=== PATIENT | male | born 1980 | race Caucasian/White ===

== ENCOUNTER 2020-10-17 14:49 | Outpatient (CLI) | payer BC, SELFPAY ==
--- NOTE | ~2020-10-17 | XR_ITS ---
XR hip RT 2V w AP pelvis 10/17/2020 15:39 Indication: Right hip pain Procedure: 4 views right hip including AP pelvis Comparison: 10/17/2020 Findings: Pelvic rings are intact. Sacral foramen are symmetric. No fracture, subluxation or dislocat ion. No significant soft tissue abnormality. No significant joint space narrowing. Impression: 1: No significant bone or joint abnormality. Reviewed, dictated and finalized at location A. Impression: 1: No significant bone or joint abnormality.
--- NOTE | ~2020-10-17 | XR_ITS ---
XR sacroiliac joints min 3V 10/17/2020 15:39 Indication: Spondylosis. Low back pain. Procedure: 3 views of the sacroiliac joints. Comparison: No prior studies for comparison. Findings: Sacroiliac joints are symmetric without significant degenerative change, erosive change or ankylosis. Sacral foramen are symmetric. Surrounding osseous structures are unremarkable. Impression: 1: No significant abnormality of the sacroiliac joints. Reviewed, dictated and finalized at location A. Impression: 1: No significant abnormality of the sacroiliac joints.
== END 2020-10-17 14:50 | disposition home or self-care (01) ==
LOC: ANHIMG 14:55
PROVIDERS: PCP Family Medicine; Visit Provider Family Medicine
DX: M47.818 Spondylosis without myelopathy or radiculopathy, sacral and sacrococcygeal region (principal)
CPT/HCPCS: 72202; 73502

== ENCOUNTER 2020-10-22 23:35 | Inpatient (IN) | payer BC, SELFPAY ==
--- NOTE | ~2020-10-22 | CT_ITS ---
EXAMINATION: CT abdomen pelvis w con EXAM DATE: 10/23/2020 01:12 INDICATION: right gluteal pain . TECHNIQUE: Spiral CT of the abdomen and pelvis was performed following intravenous injection of 100 m L Omnipaque 350. Axial, coronal and sagittal images of the abdomen and pelvis were reviewed. The do se-length product (DLP) for this examination was 1914.67 mGy-cm. The exposure was tailored according to patient size (auto mA exposure control), and iterative reconstruction (ASIR) was used as addition al dose reduction technique. There is no prior study for comparison. FINDINGS: There is large phlegmon and abscess in the posterior aspect of the perineum, inner buttock folds. This appears to be multiloculated. Region measures approximately 12 x 6 cm, does not extend in to the pelvis. Ill-defined indeterminate region in the right liver lobe measuring 3 cm; follow-up ab domen MRI without and with contrast recommended. Gallbladder is unremarkable. No biliary obstructio n. Some renal lesions which are too small to characterize by CT could also be evaluated by MR. The prostate is unremarkable. The bladder is unremarkable. Some reactive pelvic lymphadenopathy. The r ight testicle appears to be in the lower aspect of the inguinal canal. Patient may have had appendectomy. The stomach and small bowel are unremarkable. There is expected amount of colonic stool. No free intraperitoneal gas. The heart is normal in size. There are no pericardial or pleural effusions. The lung bases are unremarkable. There are no osteoblastic or ost eolytic lesions identified. IMPRESSION: 1. Large multiloculated abscess posterior to the anus along the inner gluteal folds bilaterally. 2. Some reactive pelvic lymphadenopathy. 3. Left testicle in the lower aspect of inguinal canal. 4. Indeterminate 3 cm right liver lobe lesion; follow-up abdomen MR without and with contrast. 5. Renal lesions probably cysts but too small to characterize. Reviewed, dictated and finalized at location G. IMPRESSION: 1. Large multiloculated abscess posterior to the anus along the inner gluteal folds bilaterally. 2. Some reactive pelvic lymphadenopathy. 3. Left testicle in the lower aspect of inguinal canal. 4. Indeterminate 3 cm right liver lobe lesion; follow-up abdomen MR without an d with contrast. 5. Renal lesions probably cysts but too small to characterize.
--- NOTE | ~2020-10-22 | XR_ITS ---
EXAMINATION: XR chest 2V DATE: 10/23/2020 14:35 INDICATION: Dyspnea on exertion TECHNIQUE: frontal and lateral views of the chest were obtained. COMPARISON: CT abdomen and pelvis dated 11/22/2020 FINDINGS: Thin linear bands of discoid atelectasis at the bilateral mid lung zones. No other airspace opacities , pulmonary edema, pleural effusion or pneumothorax. The cardiomediastinal silhouette is normal. IMPRESSION: 1. Mild discoid atelectasis in the bilateral mid lung zones. No other acute cardiopulmonary disease. Reviewed, dictated and finalized at location A. IMPRESSION: 1. Mild discoid atelectasis in the bilateral mid lung zones. No other acute car diopulmonary disease.
--- NOTE | ~2020-10-22 | MR_ITS ---
EXAMINATION: MR abdomen wo/w con INDICATION: Indeterminate liver lesion TECHNIQUE: Coronal SSFSE ARC, WATER:coronal LAVA-FLEX, Coronal 2D FIESTA FatSat, Axial SSFSE BH ARC, Axial 3D DualEcho BH, Axial SSFSE-IR, Axial DWI b=500, Axial 2D FIESTA FatSat, pre and dynamic postco ntrast Axial LAVA ARC, postcontrast Coronal In and Opposed phase LAVA FLEX COMPARISON: CT, 10/23/2020 CONTRAST: Multihance, 20 cc FINDINGS: Respiratory motion artifact limits the examination. There is a 4.2 x 2.9 cm T1 hypointense, T2 hyperintense mass in the right hepatic lobe which demonstrates interrupted peripheral nodular enh ancement with gradual filling on progressively delayed postcontrast images, consistent with a hemangi horacio. No additional liver lesion is identified. Polyps cysts of the kidneys measure up to 2.3 cm on th e right. There are no pathologically enlarged abdominal lymph nodes. No dilated loops of bowel are ev ident. There is loss of hepatic parenchymal signal on opposed phase imaging, consistent with hepatic steatosis. IMPRESSION: 1. Liver lesion most likely hemangioma, examination limited by respiratory motion. Reviewed, dictated and finalized at location A. IMPRESSION: 1. Liver lesion most likely hemangioma, examination limited by respiratory jennie on.
--- NOTE | ~2020-10-22 | CT_ITS ---
EXAMINATION: CTA chest PE protocol DATE: 10/26/2020 12:38 INDICATION: Dyspnea on exertion TECHNIQUE: Computed tomography angiography (CTA) of the chest was performed with 100 mL Omnipaque-350 intravenous contrast timed to evaluate the pulmonary arteries. Coronal maximum intensity projection 3D-reconstructions were created by the technologist. The dose-length product (DLP) was 1015.84 mGy-cm . Automated exposure control and iterative reconstruction technique were employed. COMPARISON: None. FINDINGS: The pulmonary arteries are well-opacified. No pulmonary embolism is identified. There is mi ld atelectasis. The lungs are free of focal airspace opacities. There is no pleural effusion or pneum othorax. No pathologically enlarged thoracic lymph nodes are identified. The heart size is normal. Th ere is mild thoracic spondylosis. IMPRESSION: 1. No pulmonary embolism or acute cardiopulmonary abnormality. Reviewed, dictated and finalized at location A.
[2020-10-22 23:37] VITALS: BP 120/51; PULSE 88; RESP 18; TEMP 36.6; O2SAT 98
[2020-10-23] VITALS (19 sets, daily range): BP systolic 88–127; BP diastolic 49–72; PULSE 68–124; RESP 12–23; TEMP 36.5–39.2; O2SAT 87–100; BMI 51.6
[2020-10-23] MEDS: MORPHINE SULFATE (*CRX) 4 MG/ML INJ IV PUSH ×2 (00:24→06:04)
[2020-10-23] MEDS: SODIUM CHLORIDE 0.9% IV 1,000 ML 999 ML IV CONT (00:24)
[2020-10-23 00:40] LABS: Basophils Absolute Auto 0.1 K/mm3 (0.0-0.1); Basophils Percent Auto 0.5 % (0.2-1.2); Eosinophils Percent Auto 0.2 % (0-4.4); Hematocrit 35.6 % (42.0-52.0); Hemoglobin 11.7 g/dL (14.0-18.0); Immature Granulocyte Absolute 0.16 K/mm3 (0.00-0.031); Immature Granulocyte Percent A 1.3 % (0-0.5); Lymphocytes Absolute Auto 1.21 K/mm3 (0.9-3.2); Lymphocytes Percent Auto 9.5 % (18.3-44.2); Mean Corpuscular HGB Conc 32.9 g/dl (32-36); Mean Corpuscular Hemoglobin 28.4 pg (26-34); Mean Corpuscular Volume 86.4 fl (80-100); Mean Platelet Volume 10.5 fl (7.4-10.4); Monocytes Absolute Auto 1.2 K/mm3 (0.1-0.6); Monocytes Percent Auto 9.5 % (2.6-8.5); Platelet Count Result 220 k/mm3 (150-375); Red Blood Count 4.12 M/mm3 (4.6-6.20); Red Cell Distribution Width 11.9 % (11.5-14.5); White Blood Count 12.7 K/mm3 (4.5-10.0)
[2020-10-23 00:50] LABS: Alanine Aminotransferase 43 U/L (4-50); Albumin Level 3.4 g/dL (3.5-5.1); Alkaline Phosphatase 115 U/L (38-126); Anion Gap 12 mmol/L (8-16); Aspartate Amino Transferase 34 U/L (17-59); Bilirubin,Total 0.9 mg/dL (0.2-1.3); Blood Urea Nitrogen 14 mg/dL (9-20); Calcium 8.9 mg/dL (8.4-10.2); Carbon Dioxide 24 mmol/L (22-30); Chloride 98 mmol/L (98-107); Estimated CRCL calculation 117 ml/min; Estimated Glomerular Filt Rate > 60; Glucose 299 mg/dL (65-110); Potassium 4.1 mmol/L (3.4-5.0); Sodium 134 mmol/L (137-145)
[2020-10-23 00:51] LABS: Lactic Acid Reflex 2.1 mmol/L (0.7-2.1)
[2020-10-23 00:53] LABS: Partial Thromboplastin Time 28.6 SECONDS (22.3-36.8)
[2020-10-23 00:59] LABS: INR 1.1; Prothrombin Time 13.8 Seconds (11.1-14.7)
--- NOTE | 2020-10-23 01:54 | ED.GENADULT ---
HPI - General Adult General Chief complaint: Unspecified Stated complaint: rectal pain Time Seen by Provider: 10/22/20 23:54 History of Present Illness HPI narrative: Patient is a 40-year-old gentleman who presents the emergency department with chief complaint of pain in the buttocks. Patient states that he saw his primary care physician this week and was told that he had pain from degenerative disc disease. Patient was started on oral pain medications and muscle relaxers and referred to physical therapy patient reported that he has noticed these been running fevers and noticed that his left gluteal area is firm and he has a lot of tenderness in his anal area. Patient denies vomiting denies diarrhea reports that the pain is worsened with movement and improved with rest. Related Data Allergies Allergy/AdvReac Type Severity Reaction Status Date / Time No Known Allergies Allergy Verified 10/23/20 00:24 Review of Systems Review of Systems: A 10 system review of systems was completed on the patient and is negative except for what is stated in the HPI. Nursing and ancillary documentation was reviewed. [facility] Past Medical History Medical History Migraine with aura and with status migrainosus, not intractable Family History Family History Mother Family history of migraine headaches Hypertension Social History Social History Alcohol intake: never Exam Narrative: GENERAL: Well-appearing, well-nourished, and in no acute distress. HEAD: Normocephalic, atraumatic. EYES: PERRLA and EOMI. ENT: Nares clear, no rhinorrhea or epistaxis. Mucous membranes moist. NECK: Supple. CHEST: Clear to auscultation. No respiratory distress. HEART: Regular rate and rhythm. No murmur heard. Normal peripheral pulses. ABDOMEN: Soft, nontender, nondistended, normal active bowel sounds. : There are several congested appearing hemorrhoids the rectal area is erythematous tender to palpation the left gluteal area is firm and indurated EXTREMITIES: Normal range of motion. No edema. SKIN: Warm, dry, no rash. NEURO: No focal deficits. Alert and oriented x3. PSYCH: Normal mood and affect. Course Vital Signs Vital signs: Vital Signs Temperature 36.6 C 10/22/20 23:37 Pulse Rate 88 10/22/20 23:37 Respiratory Rate 18 10/22/20 23:37 Blood Pressure 120/51 L 10/22/20 23:37 Pulse Oximetry 98 10/22/20 23:37 Temperature 36.6 C 10/22/20 23:37 Pulse Rate 69 10/23/20 02:54 Respiratory Rate 18 10/23/20 02:54 Blood Pressure 122/65 10/23/20 02:54 Pulse Oximetry 100 10/23/20 02:54 Medical Decision Making Vital Signs Vital Signs: Vital Signs Temperature 36.6 C 10/22/20 23:37 Pulse Rate 88 10/22/20 23:37 Respiratory Rate 18 10/22/20 23:37 Blood Pressure 120/51 L 10/22/20 23:37 Pulse Oximetry 98 10/22/20 23:37 Temperature 36.6 C 10/22/20 23:37 Pulse Rate 69 10/23/20 02:54 Respiratory Rate 18 10/23/20 02:54 Blood Pressure 122/65 10/23/20 02:54 Pulse Oximetry 100 10/23/20 02:54 Lab Data Result diagrams: 10/23/20 00:21 10/23/20 00:21 Labs: Lab Results 10/23/20 10/23/20 10/23/20 Range/Units 00:21 00:21 00:21 WBC 12.7 H (4.5-10.0) K/mm3 RBC 4.12 L (4.6-6.20) M/mm3 Hgb 11.7 L (14.0-18.0) g/dL Hct 35.6 L (42.0-52.0) % MCV 86.4 (80-100) fl MCH 28.4 (26-34) pg MCHC 32.9 (32-36) g/dl RDW 11.9 (11.5-14.5) % Plt Count 220 (150-375) k/mm3 MPV 10.5 H (7.4-10.4) fl Immature Gran % (Auto) 1.3 H (0-0.5) % Neut % (Auto) 79.0 H (45.5-73.1) % Lymph % (Auto) 9.5 L (18.3-44.2) % [place] % (Auto) 9.5 H (2.6-8.5) % Eos % (Auto) 0.2 (0-4.4) % Baso % (Auto) 0.5 (0.2-1.2) % Lymph # (Auto) 1.21 (0.9-
[2020-10-23 02:56] LABS: Add Urine Microscopic? YES; Appearance Urine Clear (Clear); Bilirubin Urine Negative (Negative); Blood Urine Negative (Negative); Color Urine Yellow (Yellow); Glucose Urine UA 3+ mg/dL (Negative); Ketones Urine Trace mg/dL (Negative); Leukocyte Esterase Ur Negative LEU/UL (Negative); Mucus Urine Rare /lpf; Nitrate Urine Negative (Negative); Protein Urine 1+ mg/dL (Negative); Squamous Epithelial Cell Urine Occasional /hpf (Few)
[2020-10-23 02:57] LABS: Specific Grav Ur 1.052 (1.001-1.035)
[2020-10-23 03:37] LABS: Reflex Lactic Acid Yes or No Add Lactic
--- NOTE | 2020-10-23 04:51 | ADMGEN ---
This patient, Ed Calvo, was admitted to 3 [facility] Surg Room 304-01 04:40. Patient/family oriented to hospital policies and general routines including ID bracelet, bed and alarms, visiting hours, pain management, procedures, bathroom and other care routines, personal items, smoking policy, room service/diet, and visiting hours. Information on how to activate the Rapid Response Team has been discussed. Patient/Family are encouraged to report perceived risks to care and to ask questions if they do not understand what they are told or what they should do.
[2020-10-23 05:42] LABS: Lactic Acid 1.4 mmol/L (0.7-2.1)
[2020-10-23] MEDS: SODIUM CHLORIDE 0.9% IV 1,000 ML 125 ML IV CONT (06:00)
--- NOTE | 2020-10-23 08:39 | PM.IMHP ---
H&P: HPI History of Present Illness Date/Time: 10/23/20 08:39 Chief Complaint: buttock pain Narrative: Pt is a 40-year-old male with a history of diabetes, hypertension, hyperlipidemia, OSIRIS, and migraines who presented emergency room for worsening buttocks pain. The patient states the pain started 2-3 weeks ago and feels like a sharp and stabbing pain in his right buttocks. The pain does not radiate anywhere else to the body. He states right now his pain is a 5/10 but at max it was 9/10. He states it was painful and he went to the doctor who thought it could be low back strain and was sent home with NSAIDs. In the last week, he noticed it being more swollen and firm but no drainage. He says the pain is mostly in his right gluteus nic and not his rectum. He started having fevers last week at 101.8 T-max. He has noticed some diarrhea but no blood in his stool. He does have a decreased appetite but no nausea vomiting. He further denies chills, hematuria, chest pain, headaches or abdominal pain. He does have some dyspnea on exertion which started in the last few weeks and has no history of heart or lung disease but does have a history of sleep apnea. He has no further symptoms of COVID such as cough, congestion, loss of smell or taste, sore throat and has been vaccinated by [employer] in April. No history of liver disease. As for his diabetes, he says he is unsure of his last A1c and does not check at home because no one has ever showed him how . Review of Systems Review of Systems: All systems reviewed & are unremarkable except as noted in HPI and below PMFSH Past Medical History Medical History (Updated 10/23/20 @ 08:59 by Aym Barnes PA-C) Essential (primary) hypertension Migraine with aura and with status migrainosus, not intractable Mixed hyperlipidemia Obstructive sleep apnea (adult) (pediatric) Type 2 diabetes mellitus without complications Surgical History Surgical History (Updated 10/23/20 @ 08:56 by Amy Barnes PA-C) Previous back surgery unknown type fixing holes in his back due to infection. No hardware per pt Family History Family History Mother Family history of migraine headaches Hypertension Social History Social History (Updated 10/23/20 @ 08:57 by Amy Barnes PA-C) Social History: Patient does not drink, smoke, or do drugs. He would like to be a full code. His surrogate decision maker is his mom, Sena. He currently works at a desk job. Smoking status: Never smoker Alcohol intake: never Substance use: never Spiritual care concerns: No Meds Home Medications and Allergies Home Medications Medication Instructions Recorded Confirmed Type fremanezumab-vfrm 225 mg/1.5 mL 225 mg SUB-Q MONTHLY #4.5 ml 09/02/19 10/23/20 Rx subcutaneous auto-injector metformin 500 mg tablet,extended 500 mg PO BID #180 tablet 10/31/19 10/23/20 Rx release 24 hr lisinopril 10 mg tablet 10 mg PO DAILY #90 tablet 02/13/20 10/23/20 Rx ergocalciferol (vitamin D2) 1,250 See Rx Instructions .ROUTE 03/09/20 10/23/20 Rx mcg (50,000 unit) capsule .COMPLEX #12 capsule cyclobenzaprine 10 mg tablet 10 mg PO TID PRN #30 tablet 10/16/20 10/23/20 Rx lovastatin 10 mg PO DAILY 10/23/20 10/23/20 History sumatriptan succinate See Rx Instructions .ROUTE 10/23/20 10/23/20 History .COMPLEX PRN MDD 2 Allergies Allergy/AdvReac Type Severity Reaction Status Date / Time No Known Allergies Allergy Verified 10/23/20 05:12 Vital Signs Vital Signs - 24 hr 10/22/20 23:37 10/23/20 02:54 10/23/20 05:07 Temperature 97.9 F 97.7 F Pulse Rate 88 69 124 H Respiratory Rate 18 18 20 Blood Pressure 120/51 L 122/65 106/53 L Pulse Oximetry 98 100 93 10/23/20 06:00 Temperature 97.9 F Pulse Rate 68 Respiratory Rate 18 Blood Pressure 122/56 L Pulse Oximetry 99 Exam Narrative: General:Well developed well nourish
[2020-10-23 08:41] LABS: Hemoglobin A1C 10.4 % (<5.7)
--- NOTE | 2020-10-23 08:58 | ECG_ITS ---
Measurements Intervals [place] Rate: 113 P: 53 IA: 154 QRS: -47 QRSD: 107 T: 33 QT: 331 QTc: 455 Interpretive Statements SINUS TACHYCARDIA INCOMPLETE RIGHT BUNDLE BRANCH BLOCK LEFT ANTERIOR FASCICULAR BLOCK BASELINE ARTIFACT- V1-V2 ABNORMAL ECG Electronically Signed On 10-23-2020 9:47:06 CDT by Delon Goetz D.O.
--- NOTE | 2020-10-23 09:49 | WPDANESEPPF ---
Anes - Initial Pre Proc Eval Procedure: Operation Date: 10/23/20 10:00 Proposed Procedures p Incision and Drainage of Justina-Rectal Abscess - Roel Wiley MD Date/Time: 10/23/20 09:49 Surgeon: Amy Barnes PA-C Pre Op Diagnosis: Perianal Abscess, Hyperglycemia Patient Data Age: 40 Gender: M Height: 1.68 m Weight: 145.1 kg Last Vital Signs Temp 36.6 C 10/23/20 06:00 Pulse 68 10/23/20 06:00 Resp 18 10/23/20 06:00 BP 122/56 L 10/23/20 06:00 Pulse Ox 99 10/23/20 06:00 Allergies Allergy/AdvReac Type Severity Reaction Status Date / Time No Known Allergies Allergy Verified 10/23/20 05:12 Home Medications Medication Instructions Recorded Confirmed Type fremanezumab-vfrm 225 mg/1.5 mL 225 mg SUB-Q MONTHLY #4.5 ml 09/02/19 10/23/20 Rx subcutaneous auto-injector metformin 500 mg tablet,extended 500 mg PO BID #180 tablet 10/31/19 10/23/20 Rx release 24 hr lisinopril 10 mg tablet 10 mg PO DAILY #90 tablet 02/13/20 10/23/20 Rx ergocalciferol (vitamin D2) 1,250 See Rx Instructions .ROUTE 03/09/20 10/23/20 Rx mcg (50,000 unit) capsule .COMPLEX #12 capsule cyclobenzaprine 10 mg tablet 10 mg PO TID PRN #30 tablet 10/16/20 10/23/20 Rx lovastatin 10 mg PO DAILY 10/23/20 10/23/20 History sumatriptan succinate See Rx Instructions .ROUTE 10/23/20 10/23/20 History .COMPLEX PRN MDD 2 Laboratory Tests 10/23/20 10/23/20 10/23/20 00:21 00:21 00:21 WBC 12.7 K/mm3 H K/mm3 (4.5-10.0) RBC 4.12 M/mm3 L M/mm3 (4.6-6.20) Hgb 11.7 g/dL L g/dL (14.0-18.0) Hct 35.6 % L % (42.0-52.0) MCV 86.4 fl fl (80-100) MCH 28.4 pg pg (26-34) MCHC 32.9 g/dl g/dl (32-36) RDW 11.9 % % (11.5-14.5) Plt Count 220 k/mm3 k/mm3 (150-375) MPV 10.5 fl H fl (7.4-10.4) Immature Gran % (Auto) 1.3 % H % (0-0.5) Neut % (Auto) 79.0 % H % (45.5-73.1) Lymph % (Auto) 9.5 % L % (18.3-44.2) [place] % (Auto) 9.5 % H % (2.6-8.5) Eos % (Auto) 0.2 % % (0-4.4) Baso % (Auto) 0.5 % % (0.2-1.2) Lymph # (Auto) 1.21 K/mm3 K/mm3 (0.9-3.2) [place] # (Auto) 1.2 K/mm3 H K/mm3 (0.1-0.6) Eos # (Auto) 0.0 K/mm3 K/mm3 (0-0.3) Baso # (Auto) 0.1 K/mm3 K/mm3 (0.0-0.1) Abs Immat Gran (auto) 0.16 K/mm3 H K/mm3 (0.00-0.031) Absolute Neuts (auto) 10.0 K/mm3 H K/mm3 (1.3-6.7) Absolute Nucleated RBC 0.0 K/mm3 K/mm3 (0.0-0.012) Nucleated RBC % 0.0 % % (0.0-0.2) PT INR APTT Sodium 134 mmol/L L mmol/L (137-145) Potassium 4.1 mmol/L mmol/L (3.4-5.0) Chloride 98 mmol/L mmol/L (98-107) Carbon Dioxide 24 mmol/L mmol/L (22-30) Anion Gap 12 mmol/L mmol/L (8-16) BUN 14 mg/dL mg/dL (9-20) Creatinine 1.00 mg/dL mg/dL (0.7-1.3) Estim Creat Clear Calc 117 ml/min ml/min Estimated GFR > 60 (59 - ) Glucose 299 mg/dL H mg/dL (65-110) Hemoglobin A1c Lactic Acid 2.1 mmol/L mmol/L (0.7-2.1) Calcium 8.9 mg/dL mg/dL (8.4-10.2) Total Bilirubin 0.9 mg/dL mg/dL (0.2-1.3) AST 34 U/L U/L (17-59) ALT 43 U/L U/L (4-50) Alkaline Phosphatase 115 U/L U/L (38-126) Total Protein 6.0 g/dL L g/dL (6.3-8.2) Albumin 3.4 g/dL L g/dL (3.5-5.1) Urine Color Urine Appearance Urine pH Ur Specific [place] Urine Protein Urine Glucose (UA) Urine Ketones Ur Blood (Man) Urine Nitrate Urine Bilirubin Urine Urobilinogen Leukocyte Esterase Rfl Urine RBC Urine WBC Ur Squamous Epith Cells Ur
[2020-10-23] MEDS: LACTATED RINGERS 1,000 ML 30 ML IV CONT ×2 (10:01→12:09)
--- NOTE | 2020-10-23 10:11 | SUR.PREOP ---
1011- Call to Dr. Ralph and made aware patient's BG 256. No orders received at this time.
[2020-10-23 10:12] LABS: Glucose Point of Care 256 mg/dl (65-105)
--- NOTE | 2020-10-23 10:17 | WPDHPUPDATE1 ---
History and Physical Update Update Date/Time: 10/23/20 10:17 History and Physical has been reviewed, including an updated exam of the patient. There are NO changes in the patient's condition. Risks, benefits, and alternatives have been discussed and questions answered. Patient agrees to proceed with procedure.
--- NOTE | 2020-10-23 10:29 | PM.CNGS ---
Assessment and Plan Assessment and plan (1) Perirectal abscess: Code(s): K61.1 - Rectal abscess Status: Acute Assessment and Plan: Large abscess left buttocks and midline sacral area. Could be perirectal or could be recurrent pilonidal disease. Patient has active significant infection and is an uncontrolled diabetic. Will proceed with incision and drainage under general anesthesia in the operating room. No evidence of developing a necrotizing soft tissue infection at this point although this certainly couldrogress to that. Plan to proceed with prompt incision and drainage. Advised patient of the abscess and that further procedures may be necessary after the abscess has been drained. All questions were answered. He agrees to proceed. (2) Morbid (severe) obesity due to excess calories: Code(s): E66.01 - Morbid (severe) obesity due to excess calories Status: Acute (3) Acute hyperglycemia: Code(s): R73.9 - Hyperglycemia, unspecified Status: Acute (4) Type 2 diabetes mellitus without complications: Code(s): E11.9 - Type 2 diabetes mellitus without complications Status: Acute (5) Obstructive sleep apnea (adult) (pediatric): Code(s): G47.33 - Obstructive sleep apnea (adult) (pediatric) Status: Acute History of Present Illness Consult details Consult date: 10/23/20 Reason for consult: other (Perirectal, sacral abscess) Requesting physician: Fredi Hill MD Narrative: Patient is a 40-year-old morbidly obese man who is a poorly controlled diabetic. He reports he has had pain in the buttocks and sacral area for 3 weeks. The etiology of this has not been evident. He recently saw is a primary care physician and it seemed this was due to degenerative changes in his back. However, the patient began running fever and having harness with more pain in the left buttocks. He came to the emergency room last night. He was noted to have left buttocks tenderness and on CT scan of very large abscess in the buttocks and presacral area. He was admitted and started on IV antibiotics. The patient has a large scar in the presacral area which is from excision of a pilonidal cyst in 2018. He is taken to surgery now for incision and drainage of a large perirectal, sacral abscess likely either a perirectal abscess or a recurrence of his pilonidal cyst disease. He is diabetic and hemoglobin A1c is already returned and is 10.4. White blood cell count was 97135. Blood sugar in the emergency room was 299. Review of Systems Review of Systems: All systems reviewed & are unremarkable except as noted in HPI and below Constitutional: Constitutional: Reports chills, Reports fever(s) and Reports night sweats PMFSH Past Medical History Medical History (Updated 10/23/20 @ 10:42 by Roel Wiley MD) Essential (primary) hypertension Migraine with aura and with status migrainosus, not intractable Mixed hyperlipidemia Obstructive sleep apnea (adult) (pediatric) Type 2 diabetes mellitus without complications Surgical History Surgical History (Updated 10/23/20 @ 10:42 by Roel Wiley MD) History of surgical removal of pilonidal cyst 2018 Family History Family History Mother Family history of migraine headaches Hypertension Social History Social History (Updated 10/23/20 @ 08:57 by Amy Barnes PA-C) Social History: Patient does not drink, smoke, or do drugs. He would like to be a full code. His surrogate decision maker is his mom, Sena. He currently works at a desk job. Smoking status: Never smoker Alcohol intake: never Substance use: never Spiritual care concerns: No Meds Home Medications and Allergies Home Medications Medication Instructions Recorded Confirmed Type fremanezumab-vfrm 225 mg/1.5 mL 225 mg SUB-Q MONTHLY #4.5 ml 09/02/19 10/23/20 Rx subcutaneous auto-injec
--- NOTE | 2020-10-23 11:47 | W.PM.PROC2 ---
Procedure Note - Detailed Date of Procedure 10/23/20 Pre-op Diagnosis Large perirectal abscess Post-op Diagnosis same Procedure Performed Incision and drainage of complicated perirectal abscess Surgeon Roel Wiley MD Case Work Aide Luisana Izaguirre [facility] Anesthesia general Indications Patient has a 2 to three-week history of sacral and perianal pain. He started running fevers and noted increasing pain in the area of the left buttocks. The buttocks also became very firm. He came to the emergency room where he was noted to be very tender particularly in the left buttocks. CT scan showed an extensive izabela rectal or sacral abscess. The patient is taken to surgery now for incision and drainage. Findings There was an extensive very large left-sided perirectal abscess that extended around the posterior midline and also involved the right posterior and perirectal area. Cultures of this were obtained. Repeated review of the dentate line and the distal rectum was carried out and no fistula or purulent drainage in the rectum was noted. 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 There were multiple loculations in the abscess which were broken down manually. Description of Procedure The patient was taken to surgery and induced into general anesthesia. He was then placed in prone polly-knife position. Both buttocks were shaved and then taped apart. Prep and drape was carried out. The area of the abscess was not really visible. Puncture aspiration with an 18 gauge needle and syringe was carried out. No purulent fluid returned initially but finally in the right posterior quadrant, purulent fluid did return. A couple of cc of this were drawn and sent for culture and sensitivity as well as Gram stain. Incision was made over this area and sharp dissection down to a large abscess was carried out. The abscess probably had 3-400 cc of purulent fluid within it. Suction was used and eventually the abscess was drained enough that purulent fluid was no longer emanating. Placing a finger in the abscess, I probed to break down loculations and search for other abscesses. The abscess went down along the right side just past the level of the anus. It crossed over the posterior midline and a counter incision was made in the left posterior midline to assist with adequate drainage. Continued digital probing as well as placing pressure over the left and right buttocks was carried out. Hill-Junior anoscope were placed in the rectum and an internal opening was sought. None was seen. Eventually with some palpation of the mid left buttocks, purulent fluid was noted to express from the openings already made. Digital probing in this area unlocked another large abscess in the left perirectal buttocks. This was drained and 2 additional counter incisions were made. One was in the mid left buttocks and another was more anterior. The left-sided abscess extended to the anterior quadrant of the left buttocks. These loculations were broken down and all purulent material was suctioned away. Then all of the counter incisions were thoroughly irrigated with warm saline to further flush out the infectious process. Quarter-inch Ciera drain was then used as a seton between each of the counter incisions. Small pieces of the [place] drain were cut and passed from 1 opening to the other and then the 2 ends sutured to each other with 2-0 silk. When this was completed, each of the openings were packed with 2 in iodoform Nu Gauze. The left anterior quadrant opening was more bloody than the others and was packed with 2 pieces of Nu Gauze. This seemed to control the bloody ooze well. The entire perirectal area was then cleaned. Bulky fluffs and ABDs were placed over all the wounds. Medipore tape was used to secure the dressings. The patient was returned to a supine position and awakened. He was extubated. He was transferred to recovery in good condition. Estimated Blood Loss 50 Urine Output
[2020-10-23 12:15] LABS: Glucose Point of Care 254 mg/dl (65-105)
--- NOTE | 2020-10-23 13:39 | PC.NURSE ---
Pt back from surgery this afternoon. Report received from Pacu nurse. Pt placed back on 02 87% on RA. Dressing intact to I&D surgical site. x3 pinrose drains in place. I&D site packed with 5ft iodoform, and saline soaked gauze with abd and tape. 92% on 2L. Public Health Administrator soaks in place to bilateral feet, bed alarm engaged. Advancing diet as tolerated to diabetic.
[2020-10-23 16:41] LABS: Glucose Point of Care 274 mg/dl (65-105)
[2020-10-23] MEDS: INSULIN ASPART (*BKC) 100 UNITS/ML SUB-Q (18:48)
[2020-10-23] MEDS: LACTATED RINGERS 1,000 ML 100 ML IV CONT (22:13)
[2020-10-23] MEDS: FAMOTIDINE 20 MG/2 ML VIAL IV PUSH (22:13)
[2020-10-23] MEDS: HYDROcodone/acetaminophen (*CRX) 10-325 MG TABLET 1 TAB PO (23:47)
[2020-10-23] MEDS: ACETAMINOPHEN 500 MG TABLET PO (23:48)
[2020-10-24 00:48] VITALS: TEMP 36.6
[2020-10-24 02:21] VITALS: BP 141/84; PULSE 97; RESP 18; TEMP 36.6; O2SAT 95
[2020-10-24] MEDS: HYDROcodone/acetaminophen (*CRX) 10-325 MG TABLET 1 TAB PO (05:54)
[2020-10-24 06:00] VITALS: BP 147/81; PULSE 66; RESP 18; TEMP 36.7; O2SAT 97
[2020-10-24 06:50] LABS: Basophils Absolute Auto 0.1 K/mm3 (0.0-0.1); Basophils Percent Auto 0.4 % (0.2-1.2); Eosinophils Absolute Auto 0.1 K/mm3 (0-0.3); Eosinophils Percent Auto 0.6 % (0-4.4); Hematocrit 33.8 % (42.0-52.0); Hemoglobin 10.9 g/dL (14.0-18.0); Immature Granulocyte Absolute 0.21 K/mm3 (0.00-0.031); Immature Granulocyte Percent A 1.8 % (0-0.5); Lymphocytes Absolute Auto 1.43 K/mm3 (0.9-3.2); Lymphocytes Percent Auto 12.2 % (18.3-44.2); Mean Corpuscular HGB Conc 32.2 g/dl (32-36); Mean Corpuscular Hemoglobin 29.1 pg (26-34); Mean Corpuscular Volume 90.1 fl (80-100); Mean Platelet Volume 10.3 fl (7.4-10.4); Monocytes Absolute Auto 0.7 K/mm3 (0.1-0.6); Monocytes Percent Auto 6.2 % (2.6-8.5); Neutrophils Absolute Auto 9.2 K/mm3 (1.3-6.7); Neutrophils Percent Auto 78.8 % (45.5-73.1); Platelet Count Result 179 k/mm3 (150-375); Red Blood Count 3.75 M/mm3 (4.6-6.20); Red Cell Distribution Width 21.7 % (11.5-14.5); White Blood Count 11.7 K/mm3 (4.5-10.0)
[2020-10-24 07:38] LABS: Alanine Aminotransferase 35 U/L (4-50); Albumin Level 3.3 g/dL (3.5-5.1); Alkaline Phosphatase 102 U/L (38-126); Anion Gap 9 mmol/L (8-16); Aspartate Amino Transferase 32 U/L (17-59); Bilirubin,Total 0.8 mg/dL (0.2-1.3); Blood Urea Nitrogen 14 mg/dL (9-20); CRP 32.7 mg/dL (<1.0); Calcium 8.7 mg/dL (8.4-10.2); Carbon Dioxide 28 mmol/L (22-30); Chloride 99 mmol/L (98-107); Estimated CRCL calculation 116 ml/min; Estimated Glomerular Filt Rate > 60; Glucose 234 mg/dL (65-110); Potassium 4.1 mmol/L (3.4-5.0); Sodium 136 mmol/L (137-145)
[2020-10-24 08:25] LABS: Glucose Point of Care 217 mg/dl (65-105)
[2020-10-24] MEDS: INSULIN ASPART (*BKC) 100 UNITS/ML SUB-Q ×3 (08:29→18:59)
[2020-10-24] MEDS: FAMOTIDINE 20 MG/2 ML VIAL IV PUSH ×2 (09:26→22:15)
[2020-10-24] MEDS: ENOXAPARIN 40 MG/0.4 ML SYRINGE SUB-Q (09:26)
[2020-10-24] MEDS: HYDROcodone/acetaminophen (*CRX) 5-325 MG TABLET 1 TAB PO ×3 (09:29→23:37)
[2020-10-24 10:40] VITALS: BMI 51.6
[2020-10-24 12:26] LABS: Glucose Point of Care 233 mg/dl (65-105)
[2020-10-24 14:00] VITALS: BP 96/40; PULSE 110; RESP 16; TEMP 36.7; O2SAT 92
--- NOTE | 2020-10-24 14:04 | PM.PNGS ---
Progress Note: A&P Assessment and Plan (1) Perirectal abscess: Code(s): K61.1 - Rectal abscess Status: Acute Assessment and Plan: POD#1 from I&D of complex perirectal abscess. Packing removed and seton drains in place to allow this to continue to drain adequately. Will initiate dressing changes daily and as needed when soiled with 4x4 gauze fluffs and ABDs. Pain seems well-controlled with oral analgesics. Continue IV antibiotics. Blood cx NGTD. Could potentially discharge in the next few days if he continues to progress. I did discuss wound care with the patient today. He lives with his mother, who he feels will be able to help him with dressing changes if necessary. He has had some stool incontinence with flatus, so we discussed keeping the wounds clean after BMs as well. (2) Type 2 diabetes mellitus without complications: Code(s): E11.9 - Type 2 diabetes mellitus without complications Status: Acute Assessment and Plan: BS still in the 200's today. Management per Hospitalist. (3) Morbid (severe) obesity due to excess calories: Code(s): E66.01 - Morbid (severe) obesity due to excess calories Status: Acute Additional Plan I discussed the plan of care with Dr. Emery. Subjective Subjective Date/Time Seen: 10/24/20 14:04 Post Op day: 1 (I&D of complex perirectal abscess) Patient reports: no new complaints, tolerating a regular diet, flatus, bowel movement and afebrile Interval history: Patient seen today and feeling well. He reports pain is controlled. Only having perirectal pain with movement and pressure, but no pain at rest. No other complaints. Per the nurse, he had 2 BMs and she changed the overlying ABD dressing earlier today. Review of Systems Review of Systems: All systems reviewed & are unremarkable except as noted in HPI and below Exam Const: General: no acute distress and awake Nutritional Appearance: obese Orientation/consciousness: patient oriented x3 Skin: Other: Perirectal abscess with 4 open incisions and seton drains in place, packing removed. Minimal purulent drainage mostly at the more anterior incision on the left buttock. Clean gauze and ABD dressing applied with medipore tape. Neuro: General: moves all extremities and no focal motor deficits Extrem: General: no clubbing, cyanosis or edema Psych: Mental Status: mental status grossly normal Insight: Good insight present (Psych) Judgement: Good judgement present (Psych) Objective Data Vital Signs Vital Signs: Vital Signs - 24 hr 10/23/20 14:20 10/23/20 15:20 10/23/20 22:00 Temperature 98.9 F 100.6 F H 100.0 F H Pulse Rate 108 H 100 114 H Respiratory Rate 18 18 20 Blood Pressure 111/57 L 118/57 L 123/72 Pulse Oximetry 89 L 92 91 10/23/20 23:44 10/23/20 23:48 10/24/20 00:48 Temperature 102.5 F H 102.5 F H 97.8 F Pulse Rate 114 H Respiratory Rate 18 Blood Pressure 121/70 Pulse Oximetry 91 10/24/20 02:21 10/24/20 06:00 Temperature 97.8 F 98.1 F Pulse Rate 97 66 Respiratory Rate 18 18 Blood Pressure 141/84 H 147/81 H Pulse Oximetry 95 97 Intake/Output Intake/Output: Intake & Output 10/21/20 10/22/20 10/23/20 10/24/20 23:59 23:59 23:59 23:59 Intake Total 2140 890 Output Total 2700 1925 Balance -560 1035 Meds/Results Medications: Active Medications Generic Name Dose Route Start Last Admin Trade Name Freq PRN Reason Stop Dose Admin Acetaminophen 500 mg 10/23/20 13:26 10/23/20 23:48 Acetaminophen 500 Mg Tablet PO 500 mg Q6H PRN Administration Mild Pain (1-3) or Fever Hydrocodone Bitart/Acetaminophen 1 tab 10/23/20 13:26 10/24/20 09:29 Hydrocodone/Acetaminophen (*Crx) 5-325 Mg Tablet PO 1 tab Q4H PRN Administration Pain Rated 4-6 Hydrocodone Bitart/Acetaminophen 1 tab 10/23/20 13:26 10/24/20 05:54 Hydrocodone/Acetaminophen (*Crx) 10-325 Mg Tablet PO 1 tab Q4H PRN Administration Pain Rated 7-10 Dextrose 12.
--- NOTE | 2020-10-24 14:42 | PM.IMPN ---
Progress Note: A&P Assessment and Plan (1) Abscess, perianal: Code(s): K61.0 - Anal abscess Status: Deleted Assessment and Plan: CT and symptoms consistent with abscess -s/p OR incision and drainage POD 1 -gram stain showing WBC and mixed radhika -Continue Zosyn for now -Blood cultures with NGTD -pts WBC, symptoms and HR improving. (2) Sepsis: Code(s): A41.9 - Sepsis, unspecified organism Status: Acute Assessment and Plan: Secondary to above with tachycardia and leukocytosis -continue Zosyn -blood cultures show NGTD but were drawn after abx started (3) Type 2 diabetes mellitus without complications: Code(s): E11.9 - Type 2 diabetes mellitus without complications Status: Acute Assessment and Plan: Last glucose 233 -appears to be uncontrolled as his A1c was 10.4 (last 1 was 7.8 last year) -patient takes metformin at home -will likely need Lantus at discharge, will start 8u tonight -administrative director was consulted and has seen the pt (4) Obstructive sleep apnea (adult) (pediatric): Code(s): G47.33 - Obstructive sleep apnea (adult) (pediatric) Status: Acute Assessment and Plan: Patient uses CPAP at home (5) Essential (primary) hypertension: Code(s): I10 - Essential (primary) hypertension Status: Acute Assessment and Plan: Last blood pressure 147/81 -restart home lisinopril (6) Mixed hyperlipidemia: Code(s): E78.2 - Mixed hyperlipidemia Status: Acute Assessment and Plan: will continue statin at d/c (7) Dyspnea on exertion: Code(s): R06.00 - Dyspnea, unspecified Status: Acute Assessment and Plan: Could be due to infection/sepsis, improved -CXR with atelectasis -no evidence of PE. No hypoxia, HR improved with tx. -no symptoms of COVID at this time. He is fully vaccinated Time Spent With Patient Time with patient: 25 - 35 minutes Subjective Date/time seen: 10/24/20 14:42 Interval history: Pt is a 40-year-old male here for perirectal abscess. patient was seen today and states he is feeling better although not back to his baseline. He does not have any pain if he sits still but does have pain when he moves. He has not had any further fevers or dyspnea on exertion but states he has not moved very much. He denies chest pain, nausea, vomiting, leg swelling or abdominal pain Review of Systems Review of Systems: All systems reviewed & are unremarkable except as noted in HPI and below Exam Narrative: General:Well developed well nourished patient HEENT: Normocephalic, atraumatic, PERRL, Sclerae anicteric, oral mucosa moist. Neck: Supple Resp: CTA Heart: RRR on exam today Abd: Soft, obese and nontender. No pain to palpation. Positive bowel sounds Skin: Warm and dry. Wound examined with sx team. Multiple surgical incisions with packing removed on exam. No further drainage. Slight erythema. Pain to palpation. Extremities: No swelling, erythema or pain to palpation to the lower extremities. No foot wounds Neuro: Alert and Oriented x4 . CN 2-12 intact. No focal neurological deficits. Objective Data Vital Signs Vital Signs: Vital Signs - 24 hr 10/23/20 15:20 10/23/20 22:00 10/23/20 23:44 Temperature 100.6 F H 100.0 F H 102.5 F H Pulse Rate 100 114 H 114 H Respiratory Rate 18 20 18 Blood Pressure 118/57 L 123/72 121/70 Pulse Oximetry 92 91 91 10/23/20 23:48 10/24/20 00:48 10/24/20 02:21 Temperature 102.5 F H 97.8 F 97.8 F Pulse Rate 97 Respiratory Rate 18 Blood Pressure 141/84 H Pulse Oximetry 95 10/24/20 06:00 Temperature 98.1 F Pulse Rate 66 Respiratory Rate 18 Blood Pressure 147/81 H Pulse Oximetry 97 Intake/Output Intake/Output: Intake & Output 10/21/20 10/22/20 10/23/20 10/24/20 23:59 23:59 23:59 23:59 Intake Total 2140 890 Output Total 2700 1923 Balance -560 -1035 Meds/Re
[2020-10-24 18:11] LABS: Glucose Point of Care 266 mg/dl (65-105)
[2020-10-24] MEDS: lisinopriL 10 MG TABLET PO (18:59)
[2020-10-24] MEDS: INSULIN GLARGINE (*BKC) 100 UNITS/ML 8 UNITS SUB-Q (21:37)
[2020-10-24 22:00] VITALS: BP 107/56; PULSE 99; RESP 18; TEMP 36.6; O2SAT 92
[2020-10-24 22:40] VITALS: PULSE 101; O2SAT 92
[2020-10-24 23:49] LABS: Glucose Point of Care 251 mg/dl (65-105)
[2020-10-25 06:00] VITALS: BP 100/53; PULSE 88; RESP 18; TEMP 35.9; O2SAT 96
[2020-10-25 06:51] LABS: Basophils Percent Auto 0.4 % (0.2-1.2); Eosinophils Absolute Auto 0.2 K/mm3 (0-0.3); Hematocrit 31.3 % (42.0-52.0); Immature Granulocyte Absolute 0.19 K/mm3 (0.00-0.031); Immature Granulocyte Percent A 2.3 % (0-0.5); Lymphocytes Absolute Auto 1.48 K/mm3 (0.9-3.2); Lymphocytes Percent Auto 17.7 % (18.3-44.2); Mean Corpuscular HGB Conc 31.9 g/dl (32-36); Mean Corpuscular Hemoglobin 28.5 pg (26-34); Mean Corpuscular Volume 89.2 fl (80-100); Mean Platelet Volume 10.6 fl (7.4-10.4); Monocytes Absolute Auto 0.5 K/mm3 (0.1-0.6); Monocytes Percent Auto 6.1 % (2.6-8.5); Neutrophils Percent Auto 71.5 % (45.5-73.1); Platelet Count Result 236 k/mm3 (150-375); Red Blood Count 3.51 M/mm3 (4.6-6.20); Red Cell Distribution Width 11.9 % (11.5-14.5); White Blood Count 8.4 K/mm3 (4.5-10.0)
[2020-10-25 07:16] LABS: Anion Gap 9 mmol/L (8-16); Blood Urea Nitrogen 13 mg/dL (9-20); Calcium 8.5 mg/dL (8.4-10.2); Carbon Dioxide 27 mmol/L (22-30); Chloride 101 mmol/L (98-107); Estimated CRCL calculation 143 ml/min; Estimated Glomerular Filt Rate > 60; Glucose 198 mg/dL (65-110); Potassium 4.2 mmol/L (3.4-5.0); Sodium 137 mmol/L (137-145)
[2020-10-25 08:00] VITALS: O2SAT 95
[2020-10-25 09:11] LABS: Glucose Point of Care 197 mg/dl (65-105)
--- NOTE | 2020-10-25 09:35 | PM.IMPN ---
Progress Note: A&P Assessment and Plan (1) Abscess, perianal: Code(s): K61.0 - Anal abscess Status: Deleted Assessment and Plan: CT and symptoms consistent with abscess -s/p OR incision and drainage POD 2 -gram stain showing WBC and mixed radhika. Unable to do anaerobic stain due to transport media. -Continue Zosyn for now -Blood cultures with NGTD -pts WBC, symptoms and HR improving. (2) Sepsis: Code(s): A41.9 - Sepsis, unspecified organism Status: Acute Assessment and Plan: Secondary to above with tachycardia and leukocytosis -continue Zosyn -blood cultures show NGTD but were drawn after abx started (3) Type 2 diabetes mellitus without complications: Code(s): E11.9 - Type 2 diabetes mellitus without complications Status: Acute Assessment and Plan: Last glucose 197 -appears to be uncontrolled as his A1c was 10.4 (last 1 was 7.8 last year) -patient takes metformin at home -will likely need Lantus at discharge, 8 units of Lantus started 10/24/20 -warehouse order filler was consulted and has seen the pt (4) Obstructive sleep apnea (adult) (pediatric): Code(s): G47.33 - Obstructive sleep apnea (adult) (pediatric) Status: Acute Assessment and Plan: Patient uses CPAP at home (5) Essential (primary) hypertension: Code(s): I10 - Essential (primary) hypertension Status: Acute Assessment and Plan: Last blood pressure 100/53 -hold lisinopril due to hypotension. Patient has no dizziness or lightheadedness (6) Mixed hyperlipidemia: Code(s): E78.2 - Mixed hyperlipidemia Status: Acute Assessment and Plan: will continue statin at d/c (7) Dyspnea on exertion: Code(s): R06.00 - Dyspnea, unspecified Status: Acute Assessment and Plan: Resolved. Could be due to infection/sepsis, improved -CXR with atelectasis -no evidence of PE. No hypoxia, HR improved with tx. -no symptoms of COVID at this time. He is fully vaccinated (8) Hematuria: Code(s): R31.9 - Hematuria, unspecified Status: Acute Assessment and Plan: Likely due to fever, no infection suspected -would recommend repeat UA outpatient after patient has improved (9) Abnormal CT of liver: Code(s): R93.2 - Abnormal findings on diagnostic imaging of liver and biliary tract Status: Acute Assessment and Plan: The CT stated that the patient has an intermediate 3 cm right liver lobe lesion which recommends follow-up MRI. -spoke with the radiologist who says the suspicion for abscess is low but we could get the MRI and patient to ensure no further pathology Subjective Date/time seen: 10/25/20 09:35 Interval history: Patient is a 40-year-old male here for abscess. Patient was seen today and states he feels a little run down. He says that he is worried about in care of himself at home and he does not think his mother will be able to either. He also says that he has not been out of bed and request physical therapy to help him as he has not been out of bed for days. He says his dyspnea on exertion and shortness of breath has improved. He has no history of hematuria and plans to follow up with this outpatient. Today he denies chest pain or shortness of breath, fevers, chills, nausea or vomiting. His last bowel movement was yesterday or the day before. He is eating better. His current pain is 3/10 Exam Narrative: General:Well developed well nourished patient HEENT: Normocephalic, atraumatic, PERRL, Sclerae anicteric, oral mucosa moist. Neck: Supple Resp: CTA Heart: RRR on exam today Abd: Soft, obese and nontender. No pain to palpation. Positive bowel sounds Skin: Warm and dry. Multiple surgical incisions to the coccyx covered with gauze. Pain to palpation. Extremities: No swelling, erythema or pain to palpation to the lower extremities. No foot wounds
[2020-10-25] MEDS: FAMOTIDINE 20 MG/2 ML VIAL IV PUSH ×2 (09:48→22:13)
[2020-10-25] MEDS: ENOXAPARIN 40 MG/0.4 ML SYRINGE SUB-Q (09:48)
[2020-10-25 11:41] LABS: Glucose Point of Care 264 mg/dl (65-105)
[2020-10-25] MEDS: INSULIN ASPART (*BKC) 100 UNITS/ML SUB-Q ×2 (12:09→17:58)
--- NOTE | 2020-10-25 13:52 | PM.PNGS ---
Progress Note: A&P Assessment and Plan (1) Perirectal abscess: Code(s): K61.1 - Rectal abscess Status: Acute Assessment and Plan: improved, cont abx, cont local wound care, will need wound care as outpt likely home health Subjective Subjective Date/Time Seen: 10/25/20 13:53 feels weak, tired. reports pain improving Review of Systems Review of Systems: All systems reviewed & are unremarkable except as noted in HPI and below Exam Const: General: cooperative, comfortable and no acute distress Nutritional Appearance: obese Orientation/consciousness: patient oriented x3 Resp: Auscultation: clear to auscultation bilaterally Cardio: Rate: regular rate Rhythm: regular rhythm GI: Inspection: normal to inspection GI Palp: Yes Soft to palpation and No Tenderness to palpation present (GI) Skin: Other: perianal abscess - dressing C/D/I, amelia setons in position Objective Data Vital Signs Vital Signs: Vital Signs - 24 hr 10/24/20 14:00 10/24/20 22:00 10/24/20 22:40 Temperature 36.7 C 36.6 C Pulse Rate 110 H 99 101 H Respiratory Rate 16 18 Blood Pressure 96/40 L 107/56 L Pulse Oximetry 92 92 92 10/25/20 06:00 Temperature 35.9 C L Pulse Rate 88 Respiratory Rate 18 Blood Pressure 100/53 L Pulse Oximetry 96 Intake/Output Intake/Output: Intake & Output 10/22/20 10/23/20 10/24/20 10/25/20 23:59 23:59 23:59 23:59 Intake Total 2140 1470 1490 Output Total 2700 2350 1200 Balance -560 -880 290 Meds/Results Medications: Active Medications Generic Name Dose Route Start Last Admin Trade Name Freq PRN Reason Stop Dose Admin Acetaminophen 500 mg 10/23/20 13:10/23/20 23:48 Acetaminophen 500 Mg Tablet PO 500 mg Q6H PRN Administration Mild Pain (1-3) or Fever Hydrocodone Bitart/Acetaminophen 1 tab 10/23/20 13:26 10/24/20 23:37 Hydrocodone/Acetaminophen (*Crx) 5-325 Mg Tablet PO 1 tab Q4H PRN Administration Pain Rated 4-6 Hydrocodone Bitart/Acetaminophen 1 tab 10/23/20 13:26 10/24/20 05:54 Hydrocodone/Acetaminophen (*Crx) 10-325 Mg Tablet PO 1 tab Q4H PRN Administration Pain Rated 7-10 Dextrose 12.5 gm 10/23/20 08:18 Dextrose 50% 25 Gm/50 Ml Syringe IV PUSH PRN PRN Hypoglycemia Protocol Enoxaparin Sodium 40 mg 10/24/20 09:00 10/25/20 09:48 Enoxaparin 40 Mg/0.4 Ml Syringe SUB-Q 40 mg DAILY VANDANA Administration Famotidine 20 mg 10/23/20 21:00 10/25/20 09:48 Famotidine 20 Mg/2 Ml Vial IV PUSH 20 mg Q12HR VANDANA Administration Glucagon 1 mg 10/23/20 08:18 Glucagon For Inj 1 Mg Vial IM PRN PRN Hypoglycemia Protocol Glucose 15 gm 10/23/20 08:18 Glucose Oral Gel 15 Gm Of Glucse In 37.5 Gm Tube PO PRN PRN Hypoglycemia Protocol Piperacillin/Tazobactam/Dextrose 3.375 gm in 50 mls @ 100 mls/hr 10/23/20 07:00 10/25/20 13:03 Zosyn 3.375 Gm/D5w 50ml Pm IVPB 100 mls/hr Q6HR VANDANA Administration Dextrose 1,000 mls @ 100 mls/hr 10/23/20 08:18 Dextrose 5% 1,000 Ml IVPB PRN PRN Hypoglycemia Protocol Insulin Aspart 2 - 5 units 10/23/20 12:00 10/25/20 12:09 Insulin Aspart (*Bkc) 100 Units/Ml SUB-Q 3 units TIDWM VANDANA Administration Protocol Insulin Glargine 8 units 10/24/20 21:00 10/24/20 21:37 Insulin Glargine (*Bkc) 100 Units/Ml SUB-Q 8 units HS VANDANA Administration Lisinopril 10 mg 10/24/20 14:50 10/24/20 18:59 Lisinopril 10 Mg Tablet PO 10 mg DAILY VANDANA Administration Morphine Sulfate 2 mg 10/23/20 13:26 Morphine Sulfate (*Crx) 2 Mg/Ml Inj IV PUSH Q2H PRN Pain Rated 4-6 Morphine Sulfate 4 mg 10/23/20 13:26 Morphine Sulfate (*Crx) 4 Mg/Ml Inj IV PUSH Q2H PRN Pain Rated 7-10 Naloxone HCl 0.1 mg 10/23/20 13:26 Naloxone Hcl 0.4 Mg/Ml Vial IV PUSH Q2M PRN Opiate Reversal Ondansetron HCl 4 mg 10/23/20 03:38 Ondansetron Inj 4 Mg/2 Ml Vial IV PUSH
[2020-10-25 14:00] VITALS: BP 100/52; PULSE 84; RESP 22; TEMP 36.6; O2SAT 91
[2020-10-25 17:25] LABS: Glucose Point of Care 225 mg/dl (65-105)
[2020-10-25 20:00] VITALS: O2SAT 96
[2020-10-25 22:00] VITALS: BP 108/71; PULSE 89; RESP 18; TEMP 37.3; O2SAT 96
[2020-10-25] MEDS: INSULIN GLARGINE (*BKC) 100 UNITS/ML 8 UNITS SUB-Q (22:14)
[2020-10-25] MEDS: ACETAMINOPHEN 500 MG TABLET PO (22:37)
[2020-10-25 22:45] VITALS: PULSE 88; O2SAT 95
[2020-10-25 22:55] LABS: Glucose Point of Care 226 mg/dl (65-105)
[2020-10-26 06:00] VITALS: BP 115/68; PULSE 79; RESP 18; TEMP 36.5; O2SAT 94
[2020-10-26 06:26] LABS: Basophils Percent Auto 0.4 % (0.2-1.2); Eosinophils Absolute Auto 0.2 K/mm3 (0-0.3); Eosinophils Percent Auto 2.5 % (0-4.4); Hematocrit 30.8 % (42.0-52.0); Hemoglobin 9.9 g/dL (14.0-18.0); Immature Granulocyte Absolute 0.12 K/mm3 (0.00-0.031); Immature Granulocyte Percent A 1.7 % (0-0.5); Lymphocytes Percent Auto 23.4 % (18.3-44.2); Mean Corpuscular HGB Conc 32.1 g/dl (32-36); Mean Corpuscular Volume 87.3 fl (80-100); Mean Platelet Volume 10.6 fl (7.4-10.4); Monocytes Absolute Auto 0.4 K/mm3 (0.1-0.6); Monocytes Percent Auto 5.4 % (2.6-8.5); Neutrophils Absolute Auto 4.9 K/mm3 (1.3-6.7); Neutrophils Percent Auto 66.6 % (45.5-73.1); Platelet Count Result 278 k/mm3 (150-375); Red Blood Count 3.53 M/mm3 (4.6-6.20); Red Cell Distribution Width 11.9 % (11.5-14.5); White Blood Count 7.3 K/mm3 (4.5-10.0)
[2020-10-26 06:45] LABS: Anion Gap 9 mmol/L (8-16); Blood Urea Nitrogen 12 mg/dL (9-20); CRP 6.9 mg/dL (<1.0); Calcium 8.8 mg/dL (8.4-10.2); Carbon Dioxide 27 mmol/L (22-30); Chloride 103 mmol/L (98-107); Estimated CRCL calculation 161 ml/min; Estimated Glomerular Filt Rate > 60; Glucose 201 mg/dL (65-110); Sodium 139 mmol/L (137-145)
[2020-10-26 08:00] VITALS: O2SAT 94
[2020-10-26 08:31] LABS: Glucose Point of Care 204 mg/dl (65-105)
[2020-10-26] MEDS: FAMOTIDINE 20 MG/2 ML VIAL IV PUSH (09:07)
[2020-10-26] MEDS: ENOXAPARIN 40 MG/0.4 ML SYRINGE SUB-Q (09:07)
[2020-10-26] MEDS: INSULIN ASPART (*BKC) 100 UNITS/ML SUB-Q ×3 (09:09→17:45)
--- NOTE | 2020-10-26 09:51 | PCPTNOTE ---
On 10/26/20, the student, Jonathan Moon, provided care and completed [facility] documentation on this patient. I have reviewed the student's documentation and agree with the findings.
[2020-10-26 11:29] LABS: Glucose Point of Care 244 mg/dl (65-105)
--- NOTE | 2020-10-26 13:30 | PM.DS ---
DS: Admitting Diagnosis Discharge Date 10/26/2020 Admitting Diagnosis Perirectal abscess DS: Discharge Diagnosis Discharge Diagnosis (1) Abscess, perianal: Code(s): K61.0 - Anal abscess Status: Deleted Assessment and Plan: CT and symptoms consistent with abscess -s/p OR incision and drainage 10/23/20 -gram stain showing WBC and mixed radhika. Unable to do anaerobic stain due to transport media. -patient was on Zosyn and transition to Augmentin -Blood cultures negative -pts WBC, symptoms and HR improved at discharge. (2) Sepsis: Code(s): A41.9 - Sepsis, unspecified organism Status: Acute Assessment and Plan: Secondary to above with tachycardia and leukocytosis -patient received Zosyn and transition to Augmentin -blood cultures are negative but were drawn after abx started (3) Type 2 diabetes mellitus without complications: Code(s): E11.9 - Type 2 diabetes mellitus without complications Status: Acute Assessment and Plan: Last glucose 238 -appears to be uncontrolled as his A1c was 10.4 (last 1 was 7.8 last year) -patient takes metformin at home -Lantus started at discharge -diabetes educator was consulted and has seen the pt (4) Obstructive sleep apnea (adult) (pediatric): Code(s): G47.33 - Obstructive sleep apnea (adult) (pediatric) Status: Acute Assessment and Plan: Patient uses CPAP at home (5) Essential (primary) hypertension: Code(s): I10 - Essential (primary) hypertension Status: Acute Assessment and Plan: Last blood pressure 101/52 - Patient has no dizziness or lightheadedness (6) Mixed hyperlipidemia: Code(s): E78.2 - Mixed hyperlipidemia Status: Acute Assessment and Plan: Continue home statin (7) Dyspnea on exertion: Code(s): R06.00 - Dyspnea, unspecified Status: Acute Assessment and Plan: Resolved. Could be due to infection/sepsis, improved -CXR with atelectasis, CTA shows no PE -no evidence of DVT -no symptoms of COVID at this time. He is fully vaccinated (8) Hematuria: Code(s): R31.9 - Hematuria, unspecified Status: Acute Assessment and Plan: Likely due to fever, no infection suspected -would recommend repeat UA outpatient after patient has improved (9) Abnormal CT of liver: Code(s): R93.2 - Abnormal findings on diagnostic imaging of liver and biliary tract Status: Acute Assessment and Plan: MRI completed during the stay which shows likely hemangioma DS: Summary Hospital Course Hospital Course: date of discharge 10/26/2020 Patient is a 40-year-old male with a history of uncontrolled diabetes, hypertension, hyperlipidemia, OSIRIS who presented emergency room with buttock pain found to have a large perianal abscess. Patient was started on Zosyn and admitted to the hospitalist service. He underwent an incision and drainage of a complicated perirectal abscess by Dr. grewal on 10/23/2020. Culture did not grow any radhika. The patient improved on Zosyn and surgery. He was transition to Augmentin on discharge and his blood cultures were negative. His A1c was 10.4 and I had diabetes educator see him in consult. He was started on Lantus and he will continue his home metformin. He was educated about the importance of glucose control to avoid further infection. Patient did have some dyspnea on exertion on admission which she continued to have so CTA was done which showed no acute PE. Please see above for further details. The day of discharge patient was feeling better ready to go. He was educated about the worrisome signs and symptoms come back to emergency room for and was discharged stable condition with home health due to needing help with his wound. He is to follow up with Dr. grewal's office. Status at Discharge Functional status at discharge: independent ambulation Time Spent wi
[2020-10-26 14:00] VITALS: BP 101/52; PULSE 89; RESP 16; TEMP 36.2; O2SAT 94
[2020-10-26 17:19] LABS: Glucose Point of Care 238 mg/dl (65-105)
--- NOTE | 2020-10-30 09:26 | PC.NURSE ---
Blood cx are negative.
== END 2020-10-26 19:30 | disposition home health service (06) | DRG 854 ==
LOC: ANHED 10-23 03:30 → ANH3MEDSUR 10-23 04:51
PROVIDERS: Surgery; Admitting Provider Internal Medicine; Emergency Provider Emergency Medicine; PCP Family Medicine; Visit Provider Physician Assistant
PROC: 0D9P0ZX Drainage of Rectum, Open Approach, Diagnostic (ICD-10-PCS; CPT 46040; principal; 2020-10-23 10:00)
DX: A41.9 Sepsis, unspecified organism (principal); K61.1 Rectal abscess; K61.0 Anal abscess; Z68.43 Body mass index [BMI] 50.0-59.9, adult; E66.01 Morbid (severe) obesity due to excess calories; R31.9 Hematuria, unspecified; R93.2 Abnormal findings on diagnostic imaging of liver and biliary tract; E11.65 Type 2 diabetes mellitus with hyperglycemia; G47.33 Obstructive sleep apnea (adult) (pediatric); E78.2 Mixed hyperlipidemia; R06.00 Dyspnea, unspecified; I10 Essential (primary) hypertension; G43.909 Migraine, unspecified, not intractable, without status migrainosus; Z79.84 Long term (current) use of oral hypoglycemic drugs; Z79.899 Other long term (current) drug therapy
CPT/HCPCS: 36415; 71046; 71275; 74177; 74183; 80048; 80053; 80076; 81001; 82948; 83036; 83605; 83735; 85025; 85610; 85730; 86140; 87040; 87070; 87075; 87086; 87088; 87205; 93005; 94660; 96361; 96374; 97161; 97165; 99285; A9270; A9577; J0131; J0330; J1650; J1815; J2250; J2270; J2405; J2543; J2704; J3010; J7030; J7120; Q9967

== ENCOUNTER → 2021-01-02 12:02 | Outpatient (CLI) | payer BC, SELFPAY ==
--- NOTE | ~2021-01-02 | CT_ITS ---
EXAMINATION: CT pelvis w con DATE: 01/02/2021 12:45 INDICATION: Previous rectal abscess post surgery. TECHNIQUE: Computed tomography (CT) of the pelvis was performed with 100 cc Omnipaque 350 intravenous contrast. The dose-length product was 686.64 mGy-cm. Automated exposure control and iterative recons truction technique were employed. COMPARISON: CT dated 10/23/2020 FINDINGS: Visualized bowel gas pattern is nonobstructive. Bladder is unremarkable. No significant vas cular abnormality. No lymphadenopathy. No evidence for perirectal abscess. No acute osseous abnormali ty. IMPRESSION: 1. No significant abnormality of the pelvis. No evidence for residual perirectal abscess. Reviewed, dictated and finalized at location A. ER STACKER DRIVER IMPRESSION: 1. No significant abnormality of the pelvis. No evidence for residual perirecta l abscess.
[2021-01-02 12:33] LABS: Estimated Glomerular Filt Rate > 60
== END ==
PROVIDERS: PCP Family Medicine; Visit Provider Surgery
DX: K61.1 Rectal abscess (principal)
CPT/HCPCS: 72193; Q9967

== ENCOUNTER 2021-03-12 08:45 | Outpatient (RCR) | payer BC, SELFPAY | END 2021-03-18 14:54 | disposition home or self-care (01) | LOC: ANHDMC 08:45 | PROVIDERS: PCP Family Medicine; Visit Provider Family Medicine | DX: E11.9 Type 2 diabetes mellitus without complications (principal); Z71.89 Other specified counseling | CPT/HCPCS: G0108 ==

== ENCOUNTER 2021-07-18 08:45 | Outpatient (RCR) | payer BC, SELFPAY | END 2021-07-18 10:14 | disposition home or self-care (01) | LOC: ANHDMC 08:45 | PROVIDERS: PCP Family Medicine; Visit Provider Family Medicine | DX: E11.9 Type 2 diabetes mellitus without complications (principal); Z71.89 Other specified counseling | CPT/HCPCS: G0108 ==

== ENCOUNTER 2021-08-28 08:00 | Outpatient (RCR) | payer BC, SELFPAY ==
[2021-07-03 14:13] VITALS: BP_SYST 120
--- NOTE | 2021-07-04 13:09 | PTOPEVAL ---
PHYSICAL THERAPY INITIAL EVALUATION. Thank you for referring Ed Calvo to [facility].? The patient is scheduled to be seen for therapy?1x/week for 4 weeks. Please review, sign, date and return this plan of care MARK. I agree with and certify that the following plan of care is medically necessary. Referring Physician Date Attending Provider: Kay Peguero MD *PT Outpatient Evaluation Start: 07/03/21 Evaluation Information Diagnosis L arm pain Onset ~6 months Subjective Information Pt states his arm has been Query Text:As Reported By Patient/ having pain and is really weak Family . Pt states his pain has been progressive over the last 6 months. Pt states he has pain from his elbow to his shoulder . 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 Pain Assessment Left Arm(s) Reported Pain Level 1 Pain Description Soreness,Throbbing Pain Radiation Left Elbow Pain Frequency Acute,Intermittent Lowest Pain Intensity 1 Greatest Pain Intensity 5 Pain Aggravating Factors Lifting Upper Extremity Range of Motion Gross Upper Extremity Range of Motion wrist and elbow ROM equal Alysia Comments Scapular/ Shoulder Range of Motion Left Shoulder Flexion - Active 144 Shoulder Flexion - Passive 150 Shoulder Abduction - Active 158 Shoulder Abduction - Passive 120 Shoulder Medial Rotation - Active L5 Shoulder Lateral Rotation - Active T 4 Scapular/Shoulder Range of Motion Muscles shaking during active Comments movement R shoulder active flexion 150 R shoulder active [id number] R shoulder functional medial/ lateral rotation: T12, T4 Upper Extremity Muscle Strength Testing General Upper Extremity Strength WNL/Left,WNL/Right Gross Upper Extremity Strength Comments L UE grossly 4/5 - muscle shaking with resistance R UE grossly 4+/5 wrist strength equal alysia Posture Posture Evaluation View Posterior Thoracic Spine Posture Flattened Lumbar Spine Posture Flattened Shoulder Posture (L) Rounded,(R) Rounded,(L) Forward,(R) Forward Scapula Posture (L) Rotated Up,(R) Rotated Up Palpation Assessment Palpation tenderness noted along biceps muscle belly Special Tests-Upper Extremity Cozen's
[2021-08-01 08:00] VITALS: BP_SYST 120
--- NOTE | 2021-08-01 08:43 | PTOPEVAL ---
PHYSICAL THERAPY PROGRESS REPORT. Thank you for referring Ed Calvo to [facility].? The patient is scheduled to be seen for therapy? 1x/week for 4 weeks. Please review, sign, date and return this plan of care MARK. I agree with and certify that the following plan of care is medically necessary. Referring Physician Date Attending Provider: Kay Peguero MD Evaluation Information Diagnosis L arm pain Onset ~6 months Subjective Information Pt states his shoulder still Query Text:As Reported By Patient/ hurts, and that he sees little Family progress. Pt states exercises are going poorly at home, he reports doing some exercises, sometimes. Pt reports less of the horrible stabbing pain. His max intensity of pain is occurring less often. Pain Assessment Left Arm(s) Reported Pain Level 0 Pain Description Aching,Soreness Lowest Pain Intensity 0 Greatest Pain Intensity 5 Upper Extremity Range of Motion Gross Upper Extremity Range of Motion wrist and elbow ROM equal Alysia Scapular/ Shoulder Range of Motion Left Shoulder Flexion - Active 150 Shoulder Abduction - Active 160 Shoulder Medial Rotation - Active L5 Shoulder Lateral Rotation - Active T 4 Scapular/Shoulder Range of Motion Muscles shaking during active Comments movement R shoulder active flexion 150 R shoulder active abduction 180 R shoulder functional medial/ lateral rotation: T12, T4 Upper Extremity Muscle Strength Testing General Upper Extremity Strength WNL/Left,WNL/Right Gross Upper Extremity Strength Comments L shoulder flexion/abduction 4 /5 - muscle shaking with resistance L shoulder ext/int rot 4+/5 R UE grossly 4+/5 wrist strength equal alysia Posture Posture Evaluation View Posterior Thoracic Spine Posture Flattened Lumbar Spine Posture Flattened Shoulder Posture (L) Rounded,(R) Rounded,(L) Forward,(R) Forward Scapula Posture (L) Rotated Up,(R) Rotated Up Palpation Assessment Palpation tenderness noted along lateral biceps muscle belly General Exercise Exercise Description Reviewed and educated on Query Text:Record Sets, Reps, importance of stretching and Resistance, and Position strengthening program for home and consistency if he
[2021-08-28 08:08] VITALS: BP_SYST 120
--- NOTE | 2021-08-28 13:25 | PTOPEVAL ---
PHYSICAL THERAPY PROGRESS REPORT AND DISCHARGE SUMMARY. Thank you for referring Ed Calvo to [facility].? The patient is to be discharged from skilled therapy services at this time. Please review, sign, date and return this plan of care MARK. I agree with and certify that the following plan of care is medically necessary. Referring Physician Date Attending Provider: Kay Peguero MD Evaluation Information Diagnosis L arm pain Onset ~6 months Subjective Information Pt laughs today and states he Query Text:As Reported By Patient/ does not know if hurting more Family is better or worse. He reports exercises are going , and states he is doing them at least once a day. He reports reaching over his head is the biggest difficulty. Pain Assessment Self Report Pain Assessment Left Arm(s) Reported Pain Level 1 Pain Description Aching,Soreness,Stabbing Greatest Pain Intensity 5 Upper Extremity Range of Motion Gross Upper Extremity Range of Motion wrist and elbow ROM equal Alysia Scapular/ Shoulder Range of Motion Left Shoulder Flexion - Active 140 Shoulder Flexion - Passive 150 Shoulder Abduction - Active 124 Shoulder Abduction - Passive 120 Shoulder Medial Rotation - Active L PSIS Shoulder Lateral Rotation - Active T2 Scapular/Shoulder Range of Motion Muscles shaking during active Comments movement R shoulder active flexion 150 R shoulder active abduction 180 R shoulder functional medial/ lateral rotation: T12, T4 Upper Extremity Muscle Strength Testing General Upper Extremity Strength WNL/Left,WNL/Right Gross Upper Extremity Strength Comments L shoulder flexion/abduction 4 +/5 - muscle shaking with resistance L shoulder ext/int rot 4+/5 R UE grossly 4+/5 wrist strength equal alysia Posture Posture Evaluation View Posterior Thoracic Spine Posture Flattened Lumbar Spine Posture Flattened Shoulder Posture (L) Rounded,(R) Rounded,(L) Forward,(R) Forward Scapula Posture (L) Rotated Up,(R) Rotated Up Palpation Assessment Palpation tenderness noted along lateral biceps muscle belly PT Clinical Summary Ed presents to therapy today for his progress report following 8 visits of
== END 2021-08-29 10:35 | disposition home or self-care (01) ==
LOC: ANHGOSHPT 08:00
PROVIDERS: PCP Family Medicine; Visit Provider Family Medicine
DX: M75.22 Bicipital tendinitis, left shoulder (principal); M77.12 Lateral epicondylitis, left elbow; G56.22 Lesion of ulnar nerve, left upper limb; E11.9 Type 2 diabetes mellitus without complications; Z79.4 Long term (current) use of insulin
CPT/HCPCS: 97110; 97112; 97140; 97161; 97530

== ENCOUNTER 2021-10-18 08:48 | Outpatient (RCR) | payer BC, SELFPAY | END 2021-11-01 14:08 | disposition home or self-care (01) | LOC: ANHDMC 08:48 | PROVIDERS: PCP Family Medicine; Visit Provider Family Medicine | DX: E11.9 Type 2 diabetes mellitus without complications (principal); Z71.89 Other specified counseling | CPT/HCPCS: G0108 ==

== ENCOUNTER 2025-01-06 14:03 | Emergency (ER) | payer BC, SELFPAY ==
--- NOTE | ~2025-01-06 | CT_ITS ---
PROCEDURE: [Procedure] INDICATION: N/V/D. Abdominal pain. Hypotension COMPARISON(S): None. TECHNIQUE: Multiplanar images of the abdomen and pelvis were obtained with intravenous contrast solution.. Diagnostic sensitivity is limited due to lack of oral contrast. Dose lowering technique and dose optimization was utilized. FINDINGS: There is gynecomastia. Inferior thorax: No significant abnormality is seen. Liver: There is a mass with ill-defined margins in the right lobe. It is hypoenhancing. The maximum dimension is estimated at 3.3 cm. Gallbladder: The gallbladder is present. There are no radiopaque gallstones. Pancreas: Within normal limits. Spleen: Normal in size and appearance. Adrenal glands: There are no masses seen. Kidneys: There is no hydronephrosis seen on either side. Bilateral tiny nonobstructive renal stones. 2 small cysts on the left. There are no suspicious masses seen. GI tract: There is a short segment of proximal transverse colon which shows wall thickening and appears masslike. There is fluid in it centrally. The size is difficult to obtain given the irregular shape. It is estimated to measure 6.5 x 5.6 x 5.4 cm. There is no evidence of bowel obstruction. Major vessels: The major vessels are normal in caliber. Sex specific pelvic organs: No significant abnormality is seen. Bladder: The bladder appers normal. Bones: Within normal limits for the patient's age. Lymph nodes: There is a multiplicity of small lymph nodes seen in the retroperitoneum about the aorta and IVC. These also extend down the common iliac chains. There are lymph nodes in the pelvis which are larger than those in the retroperitoneum, but these are still not enlarged by size criteria. IMPRESSION: 1. Mass in the transverse colon, most likely a primary malignancy. 2. Ill-defined mass in the liver is suspicious for metastatic disease. 3. Although there are no enlarged lymph nodes, the number is much greater than usually seen. Reviewed, dictated and finalized at location A. TRUCK DRIVER
--- NOTE | 2025-01-06 14:08 | ECG_ITS ---
Test Date: 2025-01-06 14:39:45 Measurements Intervals [place] Rate: 106 P: -10 MS: 128 QRS: -55 QRSD: 106 T: 30 QT: 325 QTc: 433 Interpretive Statements SINUS TACHYCARDIA INCOMPLETE RIGHT BUNDLE BRANCH BLOCK [90+ ms QRS DURATION, TERMINAL R IN V1/V2, 40+ ms S IN I/aVL/V4/V5/V6] LEFT ANTERIOR FASCICULAR BLOCK [QRS AXIS <= -45, QR IN I, RS IN II] ABNORMAL ECG No previous ECG available for comparison Electronically Signed On 01-07-2025 08:00:09 PLANT FACILITIES TECHNICIAN by Manjeet Welsh M.D.
[2025-01-06 14:12] VITALS: BP 109/67; PULSE 108; RESP 15; O2SAT 100
[2025-01-06 14:13] VITALS: BP 104/62; PULSE 106; RESP 20; TEMP 37.5; O2SAT 99
[2025-01-06 14:15] VITALS: BP 104/62; PULSE 108; RESP 16; O2SAT 99
--- OUTSIDE RECORDS SUMMARY | 2025-01-06 14:15 | XMS_ITS | Clinical Summary ---
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 Gender Identity Not on file Sexual Orientation Not on file Plan of Treatment Health Maintenance Due Date Last Done Comments Hepatitis C Virus (HCV) Screening 1978 TdaP Immunization 1978 Hepatitis B Immunization (1 of 3 - 19+ 3-dose series) 1997 Cologuard 04/10/2023 Colonoscopy 04/10/2023 Colorectal Cancer Screening 04/10/2023 Immunochemical Fecal Occult Blood 04/10/2023 Influenza Immunization (#1) 2024 11/22/2020 SARS-COV-2 Immunization (2024- season) 2024 06/02/2020, 05/11/2020 Respiratory Syncytial Virus (RSV) Immunization (Adult) (1 - 1-dose 75+ series) 2053 Pneumococcal Immunization Combined Aged Out 11/22/2020 No longer eligible b ased on patient's age to complete this topic Human Papillomavirus (HPV) Immunization Aged Out No longer eligible b ased on patient's age to complete this topic Meningococcal Immunization (ACWY) Aged Out No longer eligible b ased on patient's age to complete this topic Rotavirus Immunization Aged Out No lo nger eligible based on patient's age to complete this topic
--- NOTE | 2025-01-06 14:21 | ED_ITS ---
HPI - Abdominal Pain General Chief Complaint: Abdominal Pain Stated Complaint: abdominal pain x 3 weeks. N/V Time Seen by Provider: 01/06/25 14:05 History of Present Illness HPI narrative: Patient presents here with abdominal pain, nausea vomiting and diarrhea for last 3 weeks, there were days for things seem to be getting better but 2 days ago it started getting worse again. Saw his doctor today who sent him to the emergency room for low blood pressure. He has been off his mounjaro for 2 months. No recent antibiotics Related Data Home Medications ?Medication ?Instructions ?Recorded ?Confirmed ?Last Taken ?Type lancets 33 gauge (Hello MarketTouch Delica #100 ea 12/12/21 Unknown History Plus Lancet) Allergies Allergy/AdvReac Type Severity Reaction Status Date / Time lidocaine Allergy Other Verified 01/06/25 14:05 Review of Systems 2 Review of Systems: All systems reviewed & are unremarkable except as noted in HPI and below PMFSH Past Medical History Medical History Binge eating Type 2 diabetes mellitus BMI 50.0-59.9, adult Liver hemangioma MR abd: Fatty liver MR abd .2020 Cubital tunnel syndrome on left Lateral epicondylitis of left elbow Bicipital tendinitis of left shoulder Rectal bleeding Sepsis Acute hyperglycemia 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 Wiley History of surgical removal of pilonidal cyst 2018 Family History Family History Mother Family history of migraine headaches Hypertension Social History Social History Social History: Patient does not drink, smoke, or do drugs. He would like to be a full code. His surrogate decision maker is his mom, Sena. He currently works at a desk job. Smoking status: Never smoker Alcohol intake: never Substance use: never Substance use type: does not use Lack of Transportation: No Lack of Food: Never True Current Housing: I Have Housing Concerned About Future Housing: No Difficulty Paying Gas/Electric Bills: No Difficulty Paying for Meds: No Currently Unemployed: No Education: High School Diploma/GED Difficulty w/ Childcare or Family Care: No Spiritual care concerns: No Exam 2 Narrative: EXAMINATION OF ORGAN SYSTEMS/BODY AREAS: Constitutional: Vital signs per nursing GENERAL:[No acute distress, non-toxic appearing.] HEAD: Normal with no signs of head trauma. EYES: EOMI, conjunctiva normal ENT: Hearing grossly intact LUNGS: Nonlabored breathing. HEART: Tachycardic ABD: [Soft], [nontender to palpation] EXT: Normal range of motion SKIN: [No rashes or lesions.] NEURO: [Alert and oriented x 3. No gross focal sensory or strength deficits.] PSYCH: Normal affect Course Vital Signs Vital signs: Vital Signs Pulse Rate 108 H 01/06/25 14:12 Respiratory Rate 15 01/06/25 14:12 Blood Pressure 109/67 01/06/25 14:12 Pulse Oximetry 100 01/06/25 14:12 Temperature 99.5 F 01/06/25 14:13 Pulse Rate 104 H 01/06/25 16:56 Respiratory Rate 16 01/06/25 16:56 Blood Pressure 102/62 01/06/25 16:56 Pulse Oximetry 100 01/06/25 16:56 MDM - Abdominal Pain MDM Narrative Medical decision making narrative: Electronic medical record was reviewed. Patient presented to the ED with complaint of [abdominal pain and diarrhea, on and off now for almost 3 weeks]. He is also reporting a migraine. Vitals notable for tachycardia. Physical exam revealed soft abdomen, no significant focal tenderness. Based on the patient's history and physical exam, my differential includes but is not limited to [gastritis, gastroenteritis, dehydration, electrolyte abnormality, appendicitis]. [IV access was established by nursing staff. Patient was given Reglan, Benadryl, fluids]. CBC, BMP, lipase, LFTs, bilirubin and alk phos were obtained. Labs were pertinent for labs within acceptable limits. [Decision was made to obtain a CT- abdomen to evaluate for acute abdominal process. CT-abdomen per radiology interpretation is concerning for possible colon mass with possible metastasis to liver.] On reevaluation, patient is feeling fine. They are not complaining of any new abdominal pain. Repeat examination did not show any significant guarding or rebound. No new tenderness. I did discuss the finding with the patient, with possible malignancy and need to follow-up with gastroenterology. I did also update his PCP. The patient was given strict return precautions, if they are to develop any worsening abdominal pain, vomiting, or blood in the vomit they are to return to the emergency department immediately. Patient verbally acknowledges understanding these directions. They will be discharged home with loperamide as needed. They were advised to follow-up with GI and PCP in 2 days. The patient feels that this is appropriate medical decision making and verbalizes an understanding of the discharge instructions. Lab Data 01/06/25 14:37 01/06/25 14:37 Labs: Lab Results 01/06/25 01/06/25 Range/Units 14:37 14:41 WBC 8.5 (4.5-10.0) K/mm3 RBC 4.54 L (4.6-6.20) M/mm3 Hgb 11.1 L (14.0-18.0) g/dL Hct 34.8 L (42.0-52.0) % MCV 76.7 L (80-100) fl MCH 24.4 L (26-34) pg MCHC 31.9 L (32-36) g/dl RDW 14.9 H (11.5-14.5) % Plt Count 290 (150-375) k/mm3 MPV 9.9 (7.4-10.4) fl Immature Gran % (Auto) 0.2 (0-0.5) % Neut % (Auto) 82.0 H (45.5-73.1) % Lymph % (Auto) 9.2 L (18.3-44.2) % [place] % (Auto) 8.3 (2.6-8.5) % Eos % (Auto) 0.1 (0-4.4) % Baso % (Auto) 0.2 (0.2-1.2) % Lymph # (Auto) 0.78 L (0.9-3.2) K/mm3 [place] # (Auto) 0.7 H (0.1-0.6) K/mm3 Eos # (Auto) 0.0 (0-0.3) K/mm3 Baso # (Auto) 0.0 (0.0-0.1) K/mm3 Abs Immat Gran (auto) 0.02 (0.00-0.031) K/mm3 Absolute Neuts (auto) 6.9 H (1.3-6.7) K/mm3 Absolute Nucleated RBC 0.000 (0.0-0.012) K/mm3 Nucleated RBC % 0.0 (0.0-0.2) % Sodium 131 L (137-145) mmol/L Potassium 4.2 (3.4-5.0) mmol/L Chloride 101 (98-107) mmol/L Carbon Dioxide 22 (22-30) mmol/L Anion Gap 8 (4-12) mmol/L BUN 15 (9-20) mg/dL Creatinine 1.01 (0.7-1.3) mg/dL Estim Creat Clear Calc 103 ml/min Estimated GFR > 60 (59 - ) Glucose 135 H (65-110) mg/dL POC Capillary Glucose 151 H (65-105) mg/dl Lactic Acid 1.3 (0.7-2.0) mmol/L Calcium 9.3 (8.4-10.2) mg/dL Total Bilirubin 1.0 (0.2-1.3) mg/dL AST 33 (17-59) U/L ALT 32 (6-50) U/L Alkaline Phosphatase 75 (38-126) U/L Total Protein 6.9 (6.3-8.2) g/dL Albumin 4.0 (3.5-5.1) g/dL Lipase 70 (23-300) U/L Imaging Data Radiologist's impression: ITS Impressions Abdomen/Pelvis CT 01/06/25 15:15 IMPRESSION: 1. Mass in the transverse colon, most likely a primary malignancy. 2. Ill-defined mass in the liver is suspicious for metastatic disease. 3. Although there are no enlarged lymph nodes, the number is much greater than usually seen. Discharge Plan Discharge Clinical Impression: Mass of colon Patient Disposition: Home Condition: Stable Instructions: Acute Diarrhea (ED) Additional Instructions: Your CT scan today unfortunately is showing a possible mass in your colon, with a possible mass in your liver. Please follow-up with the GI specialist as he will need further workup including possible colonoscopy and biopsy. Make sure to keep try to keep hydrated as well as you can, if your symptoms worsen, please come back to the emergency room. Patient Language: Hong Konger Prescriptions: New loperamide 2 mg capsule 2 mg PO Q4H PRN (Reason: loose stool) Qty: 14 0RF Rx Instructions: administer after each loose stool until symptoms controlled; do not exceed 8 mg per 24 hrs No Action (DME) lancets [OneTouch Delica Plus Lancet] 33 gauge misc See Rx Instructions .ROUTE .MEDSUPPLY Qty: 100 Rx Instructions: As directed Mounjaro 7.5 mg/0.5 mL pen injector 7.5 mg subcut WEEKLY Qty: 2 3RF (DME) blood-glucose meter [OneTouch Verio Flex meter] Misc Qty: 1 0RF Rx Instructions: May substitute to in-stock meter and/or covered by insurance. Use As Directed (DME) lancets [OneTouch Delica Plus Lancet] 30 gauge misc Qty: 9 3RF Rx Instructions: May substitute to in-stock and/or covered by insurance lancets. q ac and prn (DME) OneTouch Verio test strips Strip Qty: 5 10RF Rx Instructions: May substitute to in-stock and/or covered by insurance strips. Use BID rosuvastatin 40 mg tablet See Rx Instructions .ROUTE .COMPLEX Qty: 90 3RF Dose Instruction: TAKE 1 TABLET DAILY Rx Instructions: TAKE 1 TABLET DAILY metformin 500 mg tablet extended release 24 hr 500 mg PO DAILY Qty: 90 3RF lisinopril 40 mg tablet See Rx Instructions .ROUTE .COMPLEX Qty: 90 2RF Dose Instruction: TAKE 1 TABLET DAILY (LAST REFILL UNTIL SEEN) Rx Instructions: TAKE 1 TABLET DAILY (LAST REFILL UNTIL SEEN) Jardiance 25 mg tablet See Rx Instructions .ROUTE .COMPLEX Qty: 90 1RF Dose Instruction: TAKE 1 TABLET EVERY MORNING Rx Instructions: TAKE 1 TABLET EVERY MORNING icosapent ethyl 1 gram capsule 2 g PO BID Qty: 360 3RF cholecalciferol (vitamin D3) 125 mcg (5,000 unit) capsule 125 mcg PO DAILY Qty: 90 2RF Ajovy Autoinjector 225 mg/1.5 mL auto-injector 225 mg SUB-Q MONTHLY Qty: 4.5 3RF sumatriptan succinate 100 mg tablet See Rx Instructions .ROUTE .COMPLEX MDD 2 PRN (Reason: Migraine Headache) Qty: 20 5RF Rx Instructions: 100 mg orally ;take 1 tab at onset of headache; if no relief, may repeat 1 tab after at least 2 hrs; max = 2 tabs/24 hrs PO Follow-up/Referrals: Manjeet Peguero MD [Primary Care Provider, Family Practice] Pino Parikh MD [Physician, Gastroenterology] - 3 Days
[2025-01-06 14:30] VITALS: BP 100/59; PULSE 106; RESP 20; O2SAT 99
[2025-01-06] MEDS: METOCLOPRAMIDE HCL INJ 10 MG/2 ML VIAL IV PUSH (14:42)
[2025-01-06 14:45] LABS: Hematocrit 34.8 % (42.0-52.0); Hemoglobin 11.1 g/dL (14.0-18.0); Immature Granulocyte Percent A 0.2 % (0-0.5); Lymphocytes Absolute Auto 0.78 K/mm3 (0.9-3.2); Mean Corpuscular HGB Conc 31.9 g/dl (32-36); Mean Corpuscular Hemoglobin 24.4 pg (26-34); Mean Corpuscular Volume 76.7 fl (80-100); Nucleated Red Blood Cells Absolute Auto 0.000 K/mm3 (0.0-0.012); Nucleated Red Blood Cells Perc 0.0 % (0.0-0.2); Platelet Count Result 290 k/mm3 (150-375); Red Blood Count 4.54 M/mm3 (4.6-6.20); White Blood Count 8.5 K/mm3 (4.5-10.0)
[2025-01-06 14:48] VITALS: BP 106/61; PULSE 107; RESP 16; O2SAT 98
[2025-01-06 14:54] LABS: Alanine Aminotransferase 32 U/L (6-50); Albumin Level 4.0 g/dL (3.5-5.1); Alkaline Phosphatase 75 U/L (38-126); Anion Gap 8 mmol/L (4-12); Aspartate Amino Transferase 33 U/L (17-59); Bilirubin,Total 1.0 mg/dL (0.2-1.3); Blood Urea Nitrogen 15 mg/dL (9-20); Calcium 9.3 mg/dL (8.4-10.2); Carbon Dioxide 22 mmol/L (22-30); Chloride 101 mmol/L (98-107); Estimated CRCL calculation 103 ml/min; Estimated Glomerular Filt Rate > 60; Glucose 135 mg/dL (65-110); Lipase 70 U/L (23-300); Potassium 4.2 mmol/L (3.4-5.0); Sodium 131 mmol/L (137-145); Total Protein 6.9 g/dL (6.3-8.2)
[2025-01-06] MEDS: LACTATED RINGERS 1,000 ML 999 ML IV CONT (15:40)
[2025-01-06 16:56] VITALS: BP 102/62; PULSE 104; RESP 16; O2SAT 100
== END 2025-01-06 16:57 | disposition home or self-care (01) ==
PROVIDERS: Emergency Provider Emergency Medicine; PCP Family Medicine
DX: K63.9 Disease of intestine, unspecified (principal); I10 Essential (primary) hypertension; E11.9 Type 2 diabetes mellitus without complications; E78.2 Mixed hyperlipidemia; E66.01 Morbid (severe) obesity due to excess calories; Z68.41 Body mass index [BMI] 40.0-44.9, adult; E55.9 Vitamin D deficiency, unspecified; J45.909 Unspecified asthma, uncomplicated; K76.9 Liver disease, unspecified; Z79.85 Long-term (current) use of injectable non-insulin antidiabetic drugs; Z79.84 Long term (current) use of oral hypoglycemic drugs; Z79.899 Other long term (current) drug therapy; R00.0 Tachycardia, unspecified; I45.2 Bifascicular block
CPT/HCPCS: 36415; 74177; 80053; 82948; 83605; 83690; 85025; 93005; 96361; 96374; 96375; 99284; J1200; J2765; J7120; Q9967

== ENCOUNTER 2025-01-13 01:35 | Day surgery (SDC) | payer BC, SELFPAY ==
[2025-01-12 09:11] VITALS: BMI 42.1
--- NOTE | 2025-01-13 11:26 | P.PNAN_ITS ---
Anes - Initial Pre Proc Eval Procedure: Operation Date: 01/13/25 12:30 Proposed Procedures p Diagnostic Colonoscopy - Edison Boyle MD Date/Time: 01/13/25 11:26 Surgeon: Edison Boyle MD Pre Op Diagnosis: Other specified diseases of intestine Patient Data Age: 44 Gender: M Height: 1.7 m Weight: 122 kg Allergies Allergy/AdvReac Type Severity Reaction Status Date / Time lidocaine Allergy Other Verified 01/13/25 11:25 Home Medications ?Medication ?Instructions ?Recorded ?Confirmed ?Type rosuvastatin 40 mg tablet See Rx Instructions .Route 0 02/16/24 01/13/25 Rx .COMPLEX #90 tabs metformin 500 mg tablet,extended 500 mg PO DAILY #90 t abs 02/22/24 01/13/25 Rx release 24 hr lisinopril 40 mg tablet See Rx Instructions .Route 0 05/10/24 01/13/25 Rx .COMPLEX #90 tabs empagliflozin 25 mg tablet See Rx Instructions .Route 08/01/24 01/13/25 Rx (Jardiance) .COMPLEX #90 tabs icosapent ethyl 1 gram capsule 2 g (2 x 1 gram) PO BID #360 caps 08/01/24 01/13/25 Rx cholecalciferol (vitamin D3) 125 125 mcg PO DAILY #90 caps 08/02/24 01/13/25 Rx mcg (5,000 unit) capsule fremanezumab-vfrm 225 mg/1.5 mL 225 mg (1.5 mL) subcut MONTHLY 10/03/24 01/12/25 Rx subcutaneous auto-injector (Ajovy) #4.5 mL sumatriptan succinate 100 mg tablet See Rx Instruction s .Route 10/19/24 01/12/25 Rx .COMPLEX PRN Migraine Headache #20 tabs loperamide 2 mg capsule 2 mg PO Q4H PRN loose stool #14 01/06/25 01/12/25 Rx caps blood sugar diagnostic (OneTouch #5 pkgs 01/09/25 Rx Verio test strips) blood-glucose meter (OneTouch #1 pkg 01/09/25 Rx Verio Flex Meter) lancets 30 gauge (OneTouch Delica #9 pkgs 01/09/25 Rx Plus Lancet) Patient hx anesthesia problems: none Family hx anesthesia problems: none Results Review: All pre-operative results and documents have been reviewed as part of the pre- operative evaluation. 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 Wiley History of surgical removal of pilonidal cyst 2018 Family History Family History Mother Family history of migraine headaches Hypertension Social History Social History Social History: Patient does not drink, smoke, or do drugs. He would like to be a full code. His surrogate decision maker is his mom, Sena. 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 Smoking status: Never smoker Alcohol intake: never Substance use: never Substance use type: does not use Lack of Transportation: No Lack of Food: Never True Current Housing: I Have Housing Concerned About Future Housing: No Difficulty Paying Gas/Electric Bills: No Difficulty Paying for Meds: No Currently Unemployed: No Education: High School Diploma/GED Difficulty w/ Childcare or Family Care: No Living arrangements: with family Spiritual care concerns: No Anes - Eval Final PreProcedure Day of Procedure 01/13/25 11:26 Patient weight: morbidly obese Heart: regular rate and rhythm Lungs: clear to auscultation Airway: Mallampati scale class 1 Neurological: alert and oriented Last oral intake: >/= 8 hours ASA classification: IV Emergent: no Anesthetic plan: proceed Anesthesia type and monitoring: general GIVS and standard monitoring Results Review: All pre-operative results and documents have been reviewed as part of the pre- operative evaluation. Informed Consent: The patient's anesthetic plan and its attendant risks and benefits were discussed with the patient/family/POA. Questions were solicited and answers provided to the satisfaction of the patient/family/POA.
[2025-01-13] MEDS: LACTATED RINGERS 1,000 ML 150 ML IV CONT (11:45)
--- NOTE | 2025-01-13 12:00 | WPDHPUPDATE1 ---
History and Physical Update Update Date/Time: 01/13/25 12:00 History and Physical has been reviewed, including an updated exam of the patient. There are NO changes in the patient's condition. Risks, benefits, and alternatives have been discussed and questions answered. Patient agrees to proceed with procedure.
--- NOTE | 2025-01-13 12:10 | S_PTH ---
PATIENT: Ed Calvo LOC: [facility]ILSON Fernandez#:[id number] AGE/SX: 44/M ROOM: RE01/13/[address]: Edison Boyle MD : 1980 BED: DIS: 01/13/2025 SPEC #: [id number] RECD: 01/13/25 13:52 STATUS: CAR MORALES #: [id number] FÉLIX: 01/13/25 12:[address]: Edison Boyle DEPT: [facility] Surgical RECD BY: Yusra Dennis ENTERED: 01/13/25 13:52 SP TYPE: Surgical OTHR DR: MD Kay Hassan MD Tissues: A - Colon Biopsy Procedures: Hematoxylin and Eosin Stain Gross and Microscopic Level 4 MLH1 MSH2 MSH6 PMS2
[2025-01-13 12:20] VITALS: BP 100/58; PULSE 80; RESP 14; O2SAT 99
[2025-01-13 12:30] VITALS: BP 111/64; PULSE 77; RESP 14; O2SAT 98
[2025-01-13 12:40] VITALS: BP 115/69; PULSE 84; RESP 16; O2SAT 100
== END 2025-01-13 13:07 | disposition home or self-care (01) ==
PROVIDERS: PCP Family Medicine; Referring Provider Internal Medicine Gastroenterology; Visit Provider Internal Medicine Gastroenterology
PROC: 0DJD8ZZ Inspection of Lower Intestinal Tract, Via Natural or Artificial Opening Endoscopic (ICD-10-PCS; CPT 45378; principal; 2025-01-13 12:30)
DX: K63.89 Other specified diseases of intestine (principal); C18.4 Malignant neoplasm of transverse colon; C78.7 Secondary malignant neoplasm of liver and intrahepatic bile duct; K64.8 Other hemorrhoids; D64.9 Anemia, unspecified; I10 Essential (primary) hypertension; E11.9 Type 2 diabetes mellitus without complications; J45.909 Unspecified asthma, uncomplicated; E78.2 Mixed hyperlipidemia; G47.33 Obstructive sleep apnea (adult) (pediatric); E55.9 Vitamin D deficiency, unspecified; N48.83 Acquired buried penis; G58.8 Other specified mononeuropathies; L21.9 Seborrheic dermatitis, unspecified; E66.01 Morbid (severe) obesity due to excess calories; Z68.41 Body mass index [BMI] 40.0-44.9, adult; Z79.84 Long term (current) use of oral hypoglycemic drugs; Z98.890 Other specified postprocedural states
CPT/HCPCS: 45380; 82948; 88305; 88342; J2003; J2704; J7120

== ENCOUNTER 2025-01-17 14:02 | Outpatient (CLI) | payer BC, SELFPAY ==
--- OUTSIDE RECORDS SUMMARY | 2025-01-17 12:30 | XMS_ITS | Encounter Summary ---
Author Organization [facility] Address [address] [place] [address] Care Team Providers Care Machine Buffer Name Role Phone Unavailable Primary Care Provider Unavailabl e Reason for Referral * Eval and Treat (Routine) - Closed Specialty Diagnoses / Procedures Referred By Contac t Referred To Contact Oncology Diagnoses Metastatic colon cancer to liver (CMS/HCC) Procedures HI OFFICE/OUTPATIENT ESTABLISHED MOD MDM 30 MIN HI OFFICE/OUTPATIENT NEW MODERATE MDM 45 MINUTES Hardik Padilla MD [address] [facility] [address] [place] [phone] Phone: tel: fax: Referral ID Status Reason Start Date Expiration Date V isits Requested Visits Authorized [id number] Closed STL CTS 01/17/2025 01/18/2026 1 1 CAL EFFECTS CAMERA OPERATOR * CT Scan (Urgent) - Open Specialty Diagnoses / Procedures Referred By Contac t Referred To Contact Diagnoses Metastatic colon cancer to liver (CMS/HCC) Procedures CT BIOPSY LIVER Hardik Padilla MD [address] [facility] [address] [place] [phone] Phone: tel: fax: [address] [phone] Referral ID Status Reason Start Date Expiration Date V isits Requested Visits Authorized [id number] Open CRS to Schedule 01/17/2025 02/17/2026 1 1 CAL EFFECTS CAMERA OPERATOR * Eval and Treat (Routine) - Open Specialty Diagnoses / Procedures Referred By Contac t Referred To Contact Surgery Diagnoses Metastatic colon cancer to liver (CMS/HCC) Procedures HI OFFICE/OUTPATIENT ESTABLISHED MOD MDM 30 MIN HI OFFICE/OUTPATIENT NEW MODERATE MDM 45 MINUTES Hardik Padilla MD [address] [facility] [address] [place] [address] Phone: tel: fax: Jonathan Peterson, [address] [place] [address] Phone: tel: fax: Referral ID Status Reason Start Date Expiration Date V isits Requested Visits Authorized [id number] Open STL CTS 01/17/2025 01/17/2026 1 1 CAL EFFECTS CAMERA OPERATOR * PET Scan (Urgent) - Open Specialty Diagnoses / Procedures Referred By Contac t Referred To Contact Diagnoses Metastatic colon cancer to liver (CMS/HCC) Procedures PET TUMOR OR INFECTION IMG W CT SKB Hardik Padilla MD [address] [facility] [address] [place] [phone] Phone: tel: fax: [address] [phone] Referral ID Status Reason Start Date Expiration Date V isits Requested Visits Authorized [id number] Open CRS to Schedule 01/17/2025 02/17/2026 1 1 CAL EFFECTS CAMERA OPERATOR Reason for Visit * Reason Comments Establish Care Cancer Encounter Details Date Type Department Care Team (Late st Contact Info) Description 01/17/2025 12:30 PM OPTICAL EFFECTS CAMERA OPERATOR Office Visit [facility] Oncology and Hematology - [place] [address] [facility] [address] [place] [address] Hardik Padilla MD [address] [facility] [address] [place] [address] Metastatic colon cancer to liver (CMS/HCC) (Primary Dx) Social History Tobacco Use Types Packs/Day Years Used Date Smoking Tobacco: Never Smokeless Tobacco: Never Tobacco Cessation:Counseling Given: Not Answered Alcohol Use Standard Drinks/Week Comments Never 0 (1 standard drink = 0.6 oz pur e alcohol) Sex and Gender Information Value Date Recorded Sex Assigned at Not on file Legal Sex Male 3:19 PM OPTICAL EFFECTS CAMERA OPERATOR Gender Identity Not on file Sexual Orientation Not on file documented as of this encounter Last Filed Vital Signs Vital Sign Reading Time Taken Comments Blood Pressure 120/73 01/17/2025 12:44 PM OPTICAL EFFECTS CAMERA OPERATOR Pulse 127 01/17/2025 12:44 PM OPTICAL EFFECTS CAMERA OPERATOR Temperature 36.6 C (97.8 F) 01/17/2025 12:44 PM OPTICAL EFFECTS CAMERA OPERATOR Respiratory Rate 16 01/17/2025 12:4 4 PM OPTICAL EFFECTS CAMERA OPERATOR Oxygen Saturation 97% 01/17/2025 12: 44 PM OPTICAL EFFECTS CAMERA OPERATOR Inhaled Oxygen Concentration - - Weight 125.7 kg (277 lb 3.2 oz) 025 12:44 PM OPTICAL EFFECTS CAMERA OPERATOR Height 170.2 cm (5' 7) 01/17/2025 12:4 4 PM OPTICAL EFFECTS CAMERA OPERATOR Body Mass Index 43.42 01/17/2025 12:44 PM OPTICAL EFFECTS CAMERA OPERATOR documented in this encounter Progress Notes * Hardik Padilla MD - 01/17/2025 1:26 PM CST Hematology-oncology consult Note Requesting Physician Edison Boyle MD Primary Care Physician No primary care provider on file. Problem list There is no problem list on file for this patient. Previous TREATMENT ? Measurable Disease ? Reason for Visit Ed Calvo is a 44 y.o. male who was referred for consultation for metastatic colon cancer. History of present illness This is a 44-year-old obese male with history of type 2 diabetes, hyperlipidemia and asthma started having some mid abdominal discomfort off and on for 3 weeks duration along with intermittent nausea vomiting lightheadedness and dizziness. He has been on Mounjaro and has lost 100 pound weight in 1 year duration. Due to his symptoms he was seen by the primary care physician and CT abdomen and pelvis was performed on January 06, 2025 that showed transverse colon mass along with 3.3 cm mass in the right hepatic lobe. Patient underwent colonoscopy by Dr. Garcia on January 13, 2025 that showed malignant appearing mass at transverse colon and biopsy was performed that showed invasive well- differentiated adenocarcinoma of the transverse colon with low probability of MSI high. He has no previous history of malignancy. He also denies any family history of malignancy. He is quite emotional and tearful in my office today. Denies any other new complaints. Past Medical History Past Medical History: Diagnosis Date Asthma Diabetes mellitus (CMS/HCC) Hyperlipidemia Surgical History No past surgical history on file. Medications Current Outpatient Medications Medication Sig Dispense Refill rosuvastatin (CRESTOR) 40 mg tablet Take 40 mg by mouth daily. metFORMIN (GLUCOPHAGE XR) 500 mg Extended Release 24 hour tablet Take 500 mg by mouth daily. lisinopriL (PRINIVIL) 40 mg tablet Take 40 mg by mouth daily. Jardiance 25 mg tablet Take 25 mg by mouth daily in the morning. icosapent ethyL (VASCEPA) 1 gram Capsule cholecalciferol, Vitamin D3, 125 mcg (5,000 unit) Capsule Ajovy Autoinjector 225 mg/1.5 mL Auto-Injector SUMAtriptan (IMITREX) 100 mg tablet tirzepatide (MOUNJARO) 7.5 mg/0.5 mL Pen Injector Inject 7.5 mg by subcutaneous injection every 7 days. No current facility-administered medications for this visit. Allergies Allergies Allergen Reactions Lidocaine Unknown Not as affective Immunizations: There is no immunization history on file for this patient. Family History Family History Problem Relation Name Age of Onset No Known Problems Father No Known Problems Mother No Known Problems Brother Social History Social History Tobacco Use Smoking status: Never Smokeless tobacco: Never Substance Use Topics Alcohol use: Never Review of Systems Constitutional: Patient did not mention fever; no night sweats; no anorexia; 100 pound weight loss in 1 year duration while on Mounjaro NEENT: Patient did not mention headache; no change in vision; no change in hearing; no sore throat;no dysphagia Respiratory: Patient did not mention shortness of breath; no pleuritic chest pain; no cough; no hemoptysis Cardiac: Patient did not mention cardiac-like chest pain; no palpitations; no orthopnea; no PND; noDOE GI: Denies diarrhea; no hematochezia; no melena, intermittent lower and mid abdominal discomfort along with nausea : Patient did not mention dysuria; no frequency; no hesitancy; no hematuria PRIMARY SCHOOL PRINCIPAL: Musculosketetal: Patient did not mention bone pain; no arthralgia; no joint swelling; no myalgia; Skin: Patient did not mention pruritis; no rash; no petechiae; no ecchymoses Endocrine: Patient did not mention polydipsia; no polyuria; no unusual weight gain Neuro: Patient did not mention headache; no change in vision; no sensory changes; no muscle weakness; no confusion; no seizures Psych: Patient did not mention anxiety; no depression; Physical Exam Vitals: As per nursing note Constitutional: Well developed, well nourished, no acute distress, non-toxic appearance Teeth and gum. No signs of infection or swelling. Eyes: PERRL, conjunctiva normal HEENT: Atraumatic, external ears normal, nose normal, oropharynx moist, no pharyngeal exudates. no sinus tenderness Neck- normal range of motion, no tenderness, supple Respiratory: No respiratory distress, normal breath sounds, no rales, no wheezing Cardiovascular: Normal rate, normal rhythm, no murmurs, no gallops, no rubs GI: Soft, nondistended, normal bowel sounds, nontender, no splenomegaly, no hepatomegaly, no mass, no rebound, no guarding : No costovertebral angle tenderness Musculoskeletal: No edema, no tenderness, no deformities. Back- no tenderness Integument: Well hydrated, no rash, Digits and nails inspection normal Lymphatic: No lymphadenopathy noted Neurologic: Alert & oriented x 3, CN 2-12 normal, normal motor function, normal sensory function, no focal deficits noted Psychiatric: Speech and behavior appropriate ? labs No results found for this or any previous visit (from the past 24 hours). Pathology ? Imaging & Other Studies Performance Status? ECOG performance status 0 Assessment / Plan: ? 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 Low probability of MSI high. Patient presented with mid abdominal discomfort with intermittent nausea vomiting and dizziness for 3 weeks duration. He had CT abdomen and pelvis done on 06 January that showed 3.3 cm mass in the right hepatic lobe with mass in the transverse colon. There was multiple small lymph node in the retroperitoneum about the aorta andIVC. I have discussed the findings and pathology report with patient in detail. This is obviously concerning for metastatic colon cancer. I will order the PET scan and biopsy of the liver mass. I will order CBC, CMP and CEA today. I have discussed the management of different stages of colon cancer in detail. I will also order Tempus NexGen ration sequencing for XT, XF and XG testing. I will referhim for Mediport placement and chemotherapy teaching for FOLFOX Avastin regimen. I will see him next week to discuss the liver biopsy and further management. I have instructed him to bring his motherwith him next time. I have answered all the questions to patient's satisfaction. Type 2 diabetes. Patient is on metformin and Jardiance. I have instructed him to discontinue Mounjaro and discussed with the primary care physician. Hyperlipidemia. He is on Crestor. Thank you very much for allowing me to participate in Clovisgisell Calvo's evaluation and management. Please feel free to contact if I can be of any further assistance in your patient???s care requiring hematology or oncology evaluation. Sincerely, ? ? Hardik Padilla M.D. cell TOBACCO COUNSELING He is not a tobacco/nicotine user. Hardik Padilla MD ,01/17/2025 1:26 PM ? Total time spent 60 minutes, two third of the total time spent counseling patient [id number]. CC:?Edison Boyle MD CAL EFFECTS CAMERA OPERATOR documented in this encounter Plan of Treatment Scheduled Orders Name Type Priority Associated Diagnoses Orde r Schedule PET TUMOR OR INFECTION IMG W CT SKB MDTH Imaging Stat Metastatic colon cancer to liver (CMS/HCC) Expected: 01/18/2025, Expires: 01/17/2026 CBC WITH DIFFERENTIAL Lab Stat Metastatic colon cancer to liver (CMS/HCC) Expected: 01/17/2025, Expires: 01/17/2026 COMPREHENSIVE METABOLIC PANEL Lab Stat Metastatic colon cancer to liver (CMS/HCC) Expected: 01/17/2025, Expires: 01/17/2026 CEA Lab Routine Metastatic colon cancer to liver (CMS/HCC) Expected: 01/17/2025, Expires: 01/17/2026 CT BIOPSY LIVER Imaging Stat Metastatic colon cancer to liver (CMS/HCC) 1 Occurrences starting 01/17/2025 until 01/17/2026 MISCELLANEOUS LAB TEST Lab Routine Metastatic colon cancer to liver (CMS/HCC) Expected: 01/17/2025, Expires: 01/17/2026 Scheduled Referrals Name Type Priority Associated Diagnoses Order Schedule AMB REFERRAL TO COLORECTAL SURGERY Outpatient Referral Routine Metastatic colon cancer to liver (CMS/HCC) Ordered: 01/17/2025 AMB REFERRAL TO CHEMO TEACHING Outpatient Referral Routine Metastatic colon cancer to liver (CMS/HCC) Ordered: 01/17/2025 documented as of this encounter Visit Diagnoses Diagnosis Metastatic colon cancer to liver (CMS/HCC)- Primary Malignant neoplasm of colon, unspecified site documented in this encounter
[2025-01-17 14:23] LABS: Hematocrit 37.3 % (42.0-52.0); Hemoglobin 11.6 g/dL (14.0-18.0); Immature Granulocyte Percent A 0.4 % (0-0.5); Lymphocytes Absolute Auto 0.95 K/mm3 (0.9-3.2); Mean Corpuscular HGB Conc 31.1 g/dl (32-36); Mean Corpuscular Hemoglobin 24.3 pg (26-34); Mean Corpuscular Volume 78.0 fl (80-100); Nucleated Red Blood Cells Absolute Auto 0.000 K/mm3 (0.0-0.012); Nucleated Red Blood Cells Perc 0.0 % (0.0-0.2); Platelet Count Result 306 k/mm3 (150-375); Red Blood Count 4.78 M/mm3 (4.6-6.20); White Blood Count 6.9 K/mm3 (4.5-10.0)
--- OUTSIDE RECORDS SUMMARY | 2025-01-17 16:02 | XMS_ITS | Clinical Summary ---
Author Organization [facility] Arnaud dodson [facility] Address [address] [facility] [place] [address] Care Team Providers Care Nurse Intern Name Role Phone Unavailable Primary Care Provider Unavailabl e Allergies Active Allergy Reactions Criticality Noted Date Comments Lidocaine Unknown 01/17/2025 Not as affective Medications rosuvastatin (CRESTOR) 40 mg tablet Take 40 mg by mouth daily. 5 Active metFORMIN (GLUCOPHAGE XR) 500 mg Extended Release 24 hour tablet Take 500 mg by mouth daily. 5 Active lisinopriL (PRINIVIL) 40 mg tablet Take 40 mg by mouth daily. 5 Active Jardiance 25 mg tablet Take 25 mg by mouth daily in the morning. 5 Active icosapent ethyL (VASCEPA) 1 gram Capsule 5 Active cholecalciferol, Vitamin D3, 125 mcg (5,000 unit) Capsule 5 Active Ajovy Autoinjector 225 mg/1.5 mL Auto-Injector 5 Active SUMAtriptan (IMITREX) 100 mg tablet 5 Active tirzepatide (MOUNJARO) 7.5 mg/0.5 mL Pen Injector Inject 7.5 mg by subcutaneous injection every 7 days. Active Active Problems No known active problems Encounters Date Type Department Care Team Description 01/17/2025 12:30 PM INSTRUCTIONAL LEADER Office Visit [facility] Oncology and Hematology - [place] [address] [facility] [place] [address] Hardik Padilla MD Metastatic colon cancer to liver (CMS/HCC) (Primary Dx) 01/17/[address] [facility] Oncology and Hematology [facility] [address] [place] [phone] Hardik Padilla MD Metastatic colon cancer to liver (CMS/HCC) (Primary Dx) 01/17/[address] [facility] Oncology and Hematology [facility] [address] [place] [phone] Hardik Padilla MD 01/17/[address] [facility] Oncology and Hematology [place] [address] [place] [address] Hardik Padilla MD from Last 3 Months Family History Medical History Relation Name Comments No Known Problems Brother No Known Problems Father No Known Problems Mother Relation Name Status Comments Brother Alive Father Alive Mother Alive Social History Tobacco Use Types Packs/Day Years Used Date Smoking Tobacco: Never Smokeless Tobacco: Never Tobacco Cessation:Counseling Given: Not Answered Alcohol Use Standard Drinks/Week Comments Never 0 (1 standard drink = 0.6 oz pur e alcohol) Sex and Gender Information Value Date Recorded Sex Assigned at Not on file Legal Sex Male 3:19 PM INSTRUCTIONAL LEADER Gender Identity Not on file Sexual Orientation Not on file Last Filed Vital Signs Vital Sign Reading Time Taken Comments Blood Pressure 120/73 01/17/2025 12:44 PM INSTRUCTIONAL LEADER Pulse 127 01/17/2025 12:44 PM INSTRUCTIONAL LEADER Temperature 36.6 C (97.8 F) 01/17/2025 12:44 PM INSTRUCTIONAL LEADER Respiratory Rate 16 01/17/2025 12:4 4 PM INSTRUCTIONAL LEADER Oxygen Saturation 97% 01/17/2025 12: 44 PM INSTRUCTIONAL LEADER Inhaled Oxygen Concentration - - Weight 125.7 kg (277 lb 3.2 oz) 025 12:44 PM INSTRUCTIONAL LEADER Height 170.2 cm (5' 7) 01/17/2025 12:4 4 PM INSTRUCTIONAL LEADER Body Mass Index 43.42 01/17/2025 12:44 PM INSTRUCTIONAL LEADER Plan of Treatment Health Maintenance Due Date Last Done Comments DTAP/TDAP/TD VACCINES (1 - Tdap) 1997 HEPATITIS B VACCINES (1 of 3 - 19+ 3-dose series) 02/1997 COLORECTAL SCREENING 04/10/2023 Colorectal Cancer Screening 04/10/2023 FIT-DNA Q 3 years 04/10/2023 FIT/FOBT Q 1 year 04/10/2023 Flex Sig/CT Colonography Q 5 years 04/10/2023 Preventative Visit- Commercial 02/10/2024 INFLUENZA VACCINE (#1) 2024 HPV VACCINES (No Doses Required) Completed Insurance [facility] [employer] CHOICE
--- OUTSIDE RECORDS SUMMARY | 2025-01-17 16:02 | XMS_ITS | Encounter Summary ---
Author Organization [facility] [employer] [facility] Address [address] [place] [address] Care Team Providers Care Commercial Lines Underwriter Name Role Phone Unavailable Primary Care Provider Unavailabl e Encounter Details Date Type Department Care Team (Late st Contact Info) Description 01/17/2025 Abstract [facility]3] Oncology and Hematology - [place] [address] [facility] [address] [place] [address] Hardik Padilla MD [address] [facility] [address] [place] [address] Social History Tobacco Use Types Packs/Day Years Used Date Smoking Tobacco: Never Smokeless Tobacco: Never Alcohol Use Standard Drinks/Week Comments Never 0 (1 standard drink = 0.6 oz pur e alcohol) Sex and Gender Information Value Date Recorded Sex Assigned at Not on file Legal Sex Male 3:19 PM LAWNMOWER REPAIR MECHANIC Gender Identity Not on file Sexual Orientation Not on file documented as of this encounter Plan of Treatment Not on file documented as of this encounter Visit Diagnoses Not on filedocumented in this encounter
--- OUTSIDE RECORDS SUMMARY | 2025-01-17 16:02 | XMS_ITS | Encounter Summary ---
Author Organization [facility] Address [address] [place] [address] Care Team Providers Care Vibrator Operator Name Role Phone Unavailable Primary Care Provider Unavailabl e Encounter Details Date Type Department Care Team (Late st Contact Info) Description 01/17/2025 Orders Only [facility] Oncology and Hematology - [place] [address] [facility] [address] [place] [address] Hardik Padilla MD [address] [facility] [address] [place] [address] Metastatic colon cancer to liver (CMS/HCC) (Primary Dx) Social History Tobacco Use Types Packs/Day Years Used Date Smoking Tobacco: Never Smokeless Tobacco: Never Alcohol Use Standard Drinks/Week Comments Never 0 (1 standard drink = 0.6 oz pur e alcohol) Sex and Gender Information Value Date Recorded Sex Assigned at Not on file 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 Gender Identity Not on file Sexual Orientation Not on file documented as of this encounter Plan of Treatment Pending Results Name Type Priority Associated Diagnoses Date /Time [facility] XT DNA AND RNA Lab Routine Metastatic colon cancer to liver (CMS/HCC) 01/17/2025 2:39 PM HOPPER FEEDER [facility] XT NORMAL BLOOD Lab Routine Metastatic colon cancer to liver (CMS/HCC) 01/17/2025 2:39 PM HOPPER FEEDER Scheduled Orders Name Type Priority Associated Diagnoses Orde r Schedule [facility] XT DNA AND RNA Lab Routine Metastatic colon cancer to liver (CMS/HCC) Expected: 01/17/2025, Expires: 01/17/2026 [facility] XF Lab Routine Metastatic colon cancer to liver (CMS/HCC) Expected: 01/17/2025, Expires: 01/17/2026 [facility] XG CANCERNEXT +RNAINSIGHT AND XG+ CANCERNEXT-EXPANDED +RNAINSIGHT Lab Routine Metastatic colon cancer to liver (CMS/HCC) Expected: 01/17/2025, Expires: 01/17/2026 [facility] XG CANCERNEXT AND XG+ CANCERNEXT-EXPANDED Lab Routine Metastatic colon cancer to liver (CMS/HCC) Expected: 01/17/2025, Expires: 01/17/2026 [facility] XT DNA AND RNA SOLID TUMOR Lab Routine Metastatic colon cancer to liver (CMS/HCC) Ordered: 01/17/2025 documented as of this encounter Visit Diagnoses Diagnosis Metastatic colon cancer to liver (CMS/HCC)- Primary Malignant neoplasm of colon, unspecified site documented in this encounter
--- OUTSIDE RECORDS SUMMARY | 2025-01-17 16:02 | XMS_ITS | Clinical Summary ---
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
--- OUTSIDE RECORDS SUMMARY | 2025-01-17 16:02 | XMS_ITS | Encounter Summary ---
Author Organization [facility] Address [address] [place] [address] Care Team Providers Care Strip Catcher Name Role Phone Unavailable Primary Care Provider Unavailabl e Encounter Details Date Type Department Care Team (Late st Contact Info) Description 01/17/2025 Abstract [facility] Oncology and Hematology - [place] [address] [facility] [address] [place] [address] Hardik Padilla MD [address] [facility] [address] [place] [address] Social History Tobacco Use Types Packs/Day Years Used Date Smoking Tobacco: Never Smokeless Tobacco: Never Alcohol Use Standard Drinks/Week Comments Never 0 (1 standard drink = 0.6 oz pur e alcohol) Sex and Gender Information Value Date Recorded Sex Assigned at Not on file 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
[2025-01-17 16:56] LABS: Alanine Aminotransferase 21 U/L (6-50); Albumin Level 4.0 g/dL (3.5-5.1); Alkaline Phosphatase 82 U/L (38-126); Anion Gap 7 mmol/L (4-12); Aspartate Amino Transferase 32 U/L (17-59); Bilirubin,Total 0.9 mg/dL (0.2-1.3); Blood Urea Nitrogen 11 mg/dL (9-20); Calcium 9.3 mg/dL (8.4-10.2); Carbon Dioxide 24 mmol/L (22-30); Chloride 103 mmol/L (98-107); Estimated Glomerular Filt Rate > 60; Glucose 88 mg/dL (65-110); Potassium 4.2 mmol/L (3.4-5.0); Sodium 134 mmol/L (137-145); Total Protein 6.9 g/dL (6.3-8.2)
[2025-01-17 17:27] LABS: Carcinoembryonic Antigen 0.7 ng/mL (0.0-3.0)
== END 2025-01-17 14:03 | disposition home or self-care (01) ==
LOC: ANHLAB 14:02
PROVIDERS: Visit Provider Internal Medicine Hematology & Oncology
DX: C18.9 Malignant neoplasm of colon, unspecified (principal); C78.7 Secondary malignant neoplasm of liver and intrahepatic bile duct
CPT/HCPCS: 36415; 80053; 82378; 85025